=== PATIENT | female | born 1955 | race Caucasian/White ===

== ENCOUNTER 2021-10-16 11:17 | Outpatient (CLI) | payer OTHER, SELFPAY ==
[2021-10-16 11:13] LABS: Albumin* 4.5 g/dL (3.3-5.0); Chloride* 102 mmol/L (96-114)
[2021-10-16 11:14] LABS: Potassium* 4.6 mmol/L (3.6-5.1); Sodium* 138 mmol/L (135-149)
[2021-10-16 11:16] LABS: Alanine Aminotransferase* 26 U/L (4-35); Alkaline Phosphatase* 84 U/L (40-150); Aspartate Amino Transferase* 27 U/L (12-35); Bilirubin Total* 0.7 mg/dL (0.1-1.5); Blood Urea Nitrogen* 17 mg/dL (7-30); Calcium* 9.4 mg/dL (8.4-10.6); Carbon Dioxide* 29 mmol/L (20-32); Cholesterol* 178 mg/dL (90-199); Creatinine* 0.7 mg/dL (0.5-1.5); Estimated Glomerular Filt Rate 97 ml/min; Glucose* 105 mg/dL (60-115); Total Protein* 6.9 g/dL (6.0-8.3); Triglycerides* 105 mg/dL (40-149)
[2021-10-16 11:17] LABS: HDL Cholesterol* 64 mg/dL (>=50); LDL Cholesterol Calculated 93 mg/dL (<100)
[2021-10-21 18:06] LABS: Vitamin B12* 543 pg/mL (243-894)
== END 2021-10-16 11:18 | disposition home or self-care (01) ==
PROVIDERS: PCP Family Medicine; Visit Provider Family Medicine
DX: E78.5 Hyperlipidemia, unspecified (principal)
CPT/HCPCS: 80053; 80061; 82607; 84439; 84443

== ENCOUNTER 2021-11-02 08:21 | Outpatient (CLI) | payer OTHER, SELFPAY ==
[2021-11-02 10:50] LABS: Free T4 Free Thyroxine* 1.28 ng/dL (0.70-1.85)
== END 2021-11-02 08:22 | disposition home or self-care (01) ==
PROVIDERS: PCP Family Medicine; Visit Provider Family Medicine
DX: R79.89 Other specified abnormal findings of blood chemistry (principal)
CPT/HCPCS: 84439; 84443

== ENCOUNTER 2021-12-30 11:11 | Outpatient (CLI) | payer OTHER, SELFPAY ==
--- NOTE | 2021-12-30 11:30 | CRLHL7_ITS ---
For Patients: As a result of the Century Cures Act, medical imaging exams and procedure reports are released immediately into your electronic medical record. You may view this report before your referring provider. If you have questions, please contact your health care provider. BILATERAL SCREENING MAMMOGRAM WITH COMPUTER-AIDED DETECTION AND TOMOSYNTHESIS TECHNIQUE: CC and MLO views were obtained. These mammographic images have been obtained using full-field digital technique. These mammographic images were interpreted with the benefit of computer-aided detection. Breast Tomosynthesis was used in this interpretation. COMPARISON FILM: 10/24/20, 08/13/19, 08/07/18. FINDINGS: The breasts are heterogeneously dense, which may obscure small masses IMPRESSION: There is no radiographic evidence for malignancy. ASSESSMENT: BI-RADS Category 1: Negative RECOMMENDATION: Routine screening mammogram in 1 year. A lay language report of this examination will be provided to the patient. Jonathon Stevens M.D. Diagnostic Radiologist [email or web address] MELLISA/Dictated by: Jonathon Stevens MD @ 12/30/2021 1:12:00 PM (Electronically Signed)
== END 2021-12-30 11:12 | disposition home or self-care (01) ==
LOC: MAMMO 11:12
PROVIDERS: PCP Family Medicine; Visit Provider Family Medicine
DX: Z12.31 Encounter for screening mammogram for malignant neoplasm of breast (principal); R92.2 Inconclusive mammogram
CPT/HCPCS: 77063; 77067

== ENCOUNTER 2022-02-04 13:37 | Emergency (ER) | payer OTHER, SELFPAY ==
[2022-02-04] VITALS (19 sets, daily range): BP systolic 136–169; BP diastolic 77–96; PULSE 89–130; RESP 18–22; TEMP 37; O2SAT 90–99; BMI 30.4
--- NOTE | 2022-02-04 15:51 | CRLHL7_ITS ---
For Patients: As a result of the Century Cures Act, medical imaging exams and procedure reports are released immediately into your electronic medical record. You may view this report before your referring provider. If you have questions, please contact your health care provider. INDICATION: Shortness of breath, current smoker. TECHNIQUE: CT chest without contrast. COMPARISON: None. FINDINGS: Lungs and pleura: Multiple scattered ground-glass/tree-in-bud nodules throughout all lobes of the lung. Denser consolidation seen in the lingula. Biapical scarring with 1.5 centimeter left apical nodule.. No pleural effusions, pleural thickening, or pneumothorax. Heart and vasculature: Heart size is normal. Thoracic aorta and pulmonary artery are normal in caliber. Lymph nodes/mediastinum: Multiple mildly prominent mediastinal lymph nodes, possibly reactive... Chest wall: No masses. Upper abdomen: No significant findings. Bones: Degenerative changes. IMPRESSION: Multifocal pneumonia, including dense lingular nodular consolidation. Recommend short-term follow-up after treatment to evaluate for resolution to exclude underlying mass. Additional biapical scarring with 1.5 centimeter left apical nodule. Recommend correlation with prior imaging if available. If not, also recommend short-term follow-up as malignancy not excluded. Please note that all CT scans at this facility use dose modulation, iterative reconstruction, and/or weight-based dosing when appropriate to reduce radiation dose to as low as reasonably achievable. Dictated by Job Finney MD @ 02/04/2022 5:24:18 PM (Electronically Signed)
--- NOTE | 2022-02-04 15:57 | ED.GENADULT ---
HPI - General Adult General Chief complaint: Shortness of Breath/Dyspnea Stated complaint: Short of breath, arms not working Time Seen by Provider: 02/04/22 14:36 History of Present Illness HPI narrative: This 66-year-old female comes in reporting upper respiratory symptoms for the past couple weeks and now states that she feels some increased weakness in her arms and legs and has tingling in her legs. 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 She states that she was locked in on a respirator for quite a while and did recover but has some residual weakness and decreased sensation since then. This has worsened over the past few days. She was able to ambulate here today but states that it was difficult to do so. Related Data Previous Rx's Medication Instructions Recorded cetirizine 10 mg tablet 10 mg PO .Daily as needed PRN 10/21/21 allergy symptoms #90 tabs gabapentin 300 mg capsule 600 mg PO BID #180 caps 10/21/21 levothyroxine 150 mcg tablet 150 mcg PO DAILY #90 tabs 10/21/21 simvastatin 20 mg tablet 20 mg PO .Bedtime #90 tabs 10/21/21 sumatriptan succinate 50 mg tablet 50 mg PO .As Needed as needed PRN 10/21/21 migraine headache #10 tabs zolpidem 5 mg tablet 5 mg PO .Bedtime as needed PRN 10/21/21 insomnia #30 tabs Allergies Allergy/AdvReac Type Severity Reaction Status Date / Time No Known Allergies Allergy Unknown Unverified 09/25/21 13:43 Review of Systems Status of ROS: Reports: 10 or more systems reviewed and unremarkable except as noted in History and below Narrative: Constitutional: No fevers, no weight gain or loss. Eyes: No discharge. No vision changes. HENT: No congestion, no sore throat, no ear pain. Cardiovascular: No chest pain, no palpitations. Respiratory: She reports some cough and shortness of breath. She is a smoker. Gastrointestinal: No abdominal pain, no vomiting, no diarrhea. Genitourinary: No dysuria, no hematuria. Musculoskeletal: Normal range of motion. Skin: No rashes, no pruritis. Neurological: No dizziness, speech change. She has some residual weakness from Guillain-Santa Rosa syndrome 8 or 9 years ago but now states this weakness has worsened with some tingling. Endo/Heme/Allergies: No bruising or bleeding. No polydipsia. Pysch: no suicidality, no anxiety, no insomnia. All other systems reviewed and are negative. 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) History of migraine headaches Hypothyroidism Left shoulder pain Migraine headache Neuropathy Tobacco abuse disorder Surgical History (Updated 10/21/21 @ 14:07 by Babita Chang MD) History of breast surgery (1988) History of section (1991) History of hernia repair (2012) Family History (Updated 10/21/21 @ 14:08 by Babita Chang MD) Aunt Breast cancer, Onset Age: 55 Mother Celiac disease Brother Celiac disease Diabetes Family/Other Celiac disease Father Diabetes Colon cancer, Onset Age: 50 Maternal Grandfather Prostate cancer Social History (Updated 10/21/21 @ 14:09 by Babita Chang MD) Narrative: , retired teacher, 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 HEENT: Normocephalic, atraumatic. Neck: Normal range of motion. Nontender. Supple. Heart: Regular. No murmurs. Normal rate. Intact distal pulses. Lungs: Clear to auscultation. No chest discomfort. No wheezes, rhonchi, or rales. Abdomen: Normal bowel sounds. Nontender. No rebound tenderness. Genitalia: Deferred. Back: No midline tenderness. Normal range of motion. Extremities: Normal range of motion. No injury. Skin: Intact. No rash. Warm. No erythema or pallor. Neurologic: Alert and oriented. Fight Manager strength is equal but rather weak bilaterally. She is able to raise her arms up above her head and raise her legs up off of the bed. Pronator drift is negative. [id number] is normal. No facial asymmetry. Patellar reflexes are normal bilaterally. Achilles reflexes also are normal. Psychiatric: No suicidality. No anxiety or depression. No insomnia. Nursing notes and vitals signs are reviewed. Const: Vital Signs, click to edit/add: Vital Signs - 24 hr 02/04/22 14:01 02/04/22 18:39 02/04/22 19:06 Temperature 98.6 F Pulse Rate [Right Pulse Oximeter] 130 H 89 103 H Respiratory Rate 18 18 20 Blood Pressure [Ri ght Upper Arm] 161/78 H 136/77 169/96 H Pulse Oximetry 93 99 94 Oxygen Delivery Me thod Room Air Room Air Room Air Course Vital Signs Vital signs: Initial Vital Signs Temperature 98.6 F 02/04/22 14:01 Temperature Source Temporal Artery Scan 02/04/22 14:01 Pulse Rate 130 H 02/04/22 14:01 Respiratory Rate 18 02/04/22 14:01 Blood Pressure 161/78 H 02/04/22 14:01 Blood Pressure Mean 105 02/04/22 14:01 Blood Pressure Position Sitting 02/04/22 14:01 Pulse Oximetry 93 02/04/22 14:01 Oxygen Delivery Method 02/04/22 14:01 Vital Signs Temperature 98.6 F 02/04/22 14:01 Pulse Rate 130 H 02/04/22 14:01 Respiratory Rate 18 02/04/22 14:01 Blood Pressure 161/78 H 02/04/22 14:01 Pulse Oximetry 93 02/04/22 14:01 Oxygen Delivery Method 02/04/22 14:01 Temperature 98.6 F 02/04/22 14:01 Pulse Rate 103 H 02/04/22 19:06 Respiratory Rate 20 02/04/22 19:06 Blood Pressure 169/96 H 02/04/22 19:06 Pulse Oximetry 94 02/04/22 19:06 Oxygen Delivery Method 02/04/22 19:06 Medical Decision Making MDM Narrative Medical decision making narrative: This patient comes in reporting generalized weakness that is occurred over the past couple days. She has had respiratory symptoms for the past couple weeks and reports a cough. She is a smoker. She has a remote history of Guillain-Santa Rosa syndrome with some residual affects but states that her weakness has worsened recently and wonders if she is having a recurrence of this condition. CT scan of the chest is acquired which does show sign of pneumonia. The patient received IV doses of Rocephin and Zithromax. Her neurologic exam is normal with no pronator drift, normal [id number], she is speaking normally and able to get up and ambulate. Her four horse hitch driver strength is equal but is significantly weak and. The patient states that she does not feel safe to return home under these circumstances. Her patellar reflexes are intact bilaterally. I did speak with the neurologist nuclear weapons specialist at [facility] regarding the possibility of recurrence of an acute inflammatory demyelinating polyneuropathy. The neurologist stated that her current symptoms are not requiring that kind of workup but if worsening symptoms happen she may need a lumbar puncture. I had lengthy discussion with the patient and her son regarding the lack of hospitalization here or elsewhere to attend to her needs. I did speak with the hospitalist on-call here also in this regard. In the and it seems best to all involve to board the patient here in the ER until a bed opens up somewhere where there is neurology resources. Hopefully her symptoms will improve but if worsening then she would definitely need such resources. Lab Data Labs: Lab Results 02/04/22 02/04/22 02/04/22 Range/Units 16:05 16:05 16:05 WBC 14.43 H (4.50-11.00) K/uL RBC 4.28 (4.00-5.20) m/uL Hgb 12.8 (12.0-16.0) gm/dL Hct 39.3 (33.0-51.0) % MCV 92 (80-100) fL MCH 30 (26-34) pg MCHC 33 (32-36) gm/dL RDW Coeff of Jenelle 12.3 (11.5-15.5) % Plt Count 475 H (140-440) K/uL Neut % (Auto) 80.6 H (42.0-72.0) % Lymph % (Auto) 11.9 L (20-44) % Motley % (Auto) 5.7 (0.0-11.0) % Eos % (Auto) 1.2 (0.0-7.0) % Baso % (Auto) 0.3 (0.0-3.0) % Neut # (Auto) 11.60 H (1.7-7.0) K/uL Lymph # (Auto) 1.70 (0.90-2.90) K/uL Motley # (Auto) 0.80 (0.00-0.90) K/UL Eos # (Auto) 0.20 (0.00-0.50) K/uL Baso # (Auto) 0.00 (0.00-0.30) K/uL ESR 63 H (2-20) mm/hr Sodium 141 (135-149) mmol/L Potassium 4.2 (3.6-5.1) mmol/L Chloride 105 (96-114) mmol/L Carbon Dioxide 31 (20-32) mmol/L BUN 10 (7-30) mg/dL Creatinine 0.6 (0.5-1.5) mg/dL Estimated Creat Clear 57.33 Estimated GFR 100 ml/min Glucose 106 (60-115) mg/dL Calcium 9.6 (8.4-10.6) mg/dL C-Reactive Protein 4.4 H (0.5-1.0) mg/dL NT-Pro-B Natriuret Pep 55 pg/mL Urine Color (Yellow) Urine Appearance (Clear) Urine pH (5.0-8.5) Ur Specific Webster (1.000-1.030) Urine Protein (Negative) Urine Glucose (UA) (Negative) Urine Ketones (Negative) Urine Blood (Negative) Urine Nitrite (Negative) Urine Bilirubin (Negative) Urine Urobilinogen (0.2-1.0) Ur Leukocyte Esterase (Negative) Urine RBC (0-2) Urine WBC (0-5) Ur Squamous Epith Cells (None-Few) Urine Bacteria (None) SARS-CoV-2 (PCR) (Negative) Influenza Type A (PCR) (Negative) Influenza Type B (PCR) (Negative) RSV (PCR) (Negative) 02/04/22 02/04/22 02/04/22 Range/Units 16:05 16:20 17:40 WBC (4.50-11.00) K/uL RBC (4.00-5.20) m/uL Hgb (12.0-16.0) gm/dL Hct (33.0-51.0) % MCV (80-100) fL MCH (26-34) pg MCHC (32-36) gm/dL RDW Coeff of Jenelle (11.5-15.5) % Plt Count (140-440) K/uL Neut % (Auto) (42.0-72.0) % Lymph % (Auto) (20-44) % Motley % (Auto) (0.0-11.0) % Eos % (Auto) (0.0-7.0) % Baso % (Auto) (0.0-3.0) % Neut # (Auto) (1.7-7.0) K/uL Lymph # (Auto) (0.90-2.90) K/uL Motley # (Auto) (0.00-0.90) K/UL Eos # (Auto) (0.00-0.50) K/uL Baso # (Auto) (0.00-0.30) K/uL ESR (2-20) mm/hr Sodium (135-149) mmol/L Potassium (3.6-5.1) mmol/L Chloride (96-114) mmol/L Carbon Dioxide (20-32) mmol/L BUN (7-30) mg/dL Creatinine (0.5-1.5) mg/dL Estimated Creat Clear Estimated GFR ml/min Glucose (60-115) mg/dL Calcium (8.4-10.6) mg/dL C-Reactive Protein (0.5-1.0) mg/dL NT-Pro-B Natriuret Pep Cancelled pg/mL Urine Color Yellow (Yellow) Urine Appearance Clear (Clear) Urine pH 7.0 (5.0-8.5) Ur Specific Webster 1.025 (1.000-1.030) Urine Protein Negative (Negative) Urine Glucose (UA) Negative (Negative) Urine Ketones Negative (Negative) Urine Blood Negative (Negative) Urine Nitrite Negative (Negative) Urine Bilirubin Negative (Negative) Urine Urobilinogen 0.2 (0.2-1.0) Ur Leukocyte Esterase Negative (Negative) Urine RBC 0-2 (0-2) Urine WBC 0-2 (0-5) Ur Squamous Epith Cells Few (None-Few) Urine Bacteria None (None) SARS-CoV-2 (PCR) Negative SARS-CoV-2 (Negative) Influenza Type A (PCR) Negative PCR FLU A (Negative) Influenza Type B (PCR) Negative PCR FLU B (Negative) RSV (PCR) Negative PCR RSV (Negative) Imaging Data CT scan - chest: Attestation: I have reviewed the pertinent imaging results. Radiologist's impression: FINDINGS: Lungs and pleura: Multiple scattered ground-glass/tree-in-bud nodules throughout all lobes of the lung. Denser consolidation seen in the lingula. Biapical scarring with 1.5 centimeter left apical nodule.. No pleural effusions, pleural thickening, or pneumothorax. Heart and vasculature: Heart size is normal. Thoracic aorta and pulmonary artery are normal in caliber. Lymph nodes/mediastinum: Multiple mildly prominent mediastinal lymph nodes, possibly reactive... Chest wall: No masses. Upper abdomen: No significant findings. Bones: Degenerative changes. IMPRESSION: Multifocal pneumonia, including dense lingular nodular consolidation. Recommend short-term follow-up after treatment to evaluate for resolution to exclude underlying mass. Additional biapical scarring with 1.5 centimeter left apical nodule. Recommend correlation with prior imaging if available. If not, also recommend short-term follow-up as malignancy not excluded. Discharge Plan Discharge Clinical Impression: Community acquired pneumonia, Weakness Prescriptions: No Action cetirizine 10 mg tablet 10 mg PO .Daily as needed PRN (Reason: allergy symptoms) Qty: 90 3RF gabapentin 300 mg capsule 600 mg PO BID Qty: 180 4RF levothyroxine 150 mcg tablet 150 mcg PO DAILY Qty: 90 4RF simvastatin 20 mg tablet 20 mg PO .Bedtime Qty: 90 4RF sumatriptan succinate 50 mg tablet 50 mg PO .As Needed as needed PRN (Reason: migraine headache) Qty: 10 5RF Rx Instructions: ONE TAB AT ONSET OF HEADACHE, MAY REPEAT once in 2 h zolpidem 5 mg tablet 5 mg PO .Bedtime as needed PRN (Reason: insomnia) Qty: 30 0RF Rx Instructions: use only very sparingly Follow Up/Referrals: Babita Chang MD [Primary Care Provider] -
[2022-02-04 16:22] LABS: Basophils Percent Auto 0.3 % (0.0-3.0); Eosinophils Percent Auto 1.2 % (0.0-7.0); Hematocrit 39.3 % (33.0-51.0); Hemoglobin* 12.8 gm/dL (12.0-16.0); Immature Granulocytes Pct Auto 0.3 %; Lymphocytes Percent Auto 11.9 % (20-44); Mean Corpuscular HGB Conc 33 gm/dL (32-36); Mean Corpuscular Hemoglobin 30 pg (26-34); Mean Corpuscular Volume 92 fL (80-100); Monocytes Percent Auto 5.7 % (0.0-11.0); Neutrophils Percent Auto 80.6 % (42.0-72.0); Platelet Count* 475 K/uL (140-440); RDW Coefficient of Variation % 12.3 % (11.5-15.5); Red Blood Count 4.28 m/uL (4.00-5.20); White Blood Count* 14.43 K/uL (4.50-11.00)
[2022-02-04 16:30] LABS: Chloride* 105 mmol/L (96-114); Potassium* 4.2 mmol/L (3.6-5.1); Sodium* 141 mmol/L (135-149)
[2022-02-04 16:33] LABS: Creatinine* 0.6 mg/dL (0.5-1.5); Est. Creatinine Clearance* 57.33; Estimated Glomerular Filt Rate 100 ml/min
[2022-02-04 16:34] LABS: Blood Urea Nitrogen* 10 mg/dL (7-30); Calcium* 9.6 mg/dL (8.4-10.6); Carbon Dioxide* 31 mmol/L (20-32); Glucose* 106 mg/dL (60-115)
[2022-02-04 16:36] LABS: C Reactive Protein* 4.4 mg/dL (0.5-1.0)
[2022-02-04 16:45] LABS: Slide Review Reflex No
[2022-02-04 16:58] LABS: NT Pro B Type NatriureticPept* 55 pg/mL
[2022-02-04 17:12] LABS: PCR FLU A Negative PCR FLU A (Negative); PCR FLU B Negative PCR FLU B (Negative); PCR RSV Negative PCR RSV (Negative)
[2022-02-04 17:47] LABS: Erythrocyte SedimentationRate* 63 mm/hr (2-20)
[2022-02-04 17:48] LABS: Appearance Urine Clear (Clear); Bilirubin Urine Negative (Negative); Blood Urine Negative (Negative); Color Urine Yellow (Yellow); Glucose Urine Negative (Negative); Ketones Urine Negative (Negative); Leukocyte Esterase Urine Negative (Negative); Nitrite Urine Negative (Negative); Protein Urine Negative (Negative); Specific Gravity Urine 1.025 (1.000-1.030); Urobilinogen Urine 0.2 (0.2-1.0)
[2022-02-04 17:58] LABS: SARS PCR* Negative SARS-CoV-2 (Negative)
[2022-02-04 18:05] LABS: RBC Urine 0-2 (0-2); Squamous Epithelial Cell Urine Few (None-Few); WBC Urine 0-2 (0-5)
[2022-02-04] MEDS: cefTRIAXone 1 GM in 0.9 % SODIUM CHLORIDE Mini-bag 100 ML IVPB (19:36)
[2022-02-04] MEDS: AZITHROMYCIN 100 MG/ML inj 500 MG IVPB (20:08)
--- NOTE | 2022-02-04 22:16 | ED.NURSE ---
Pt and pt's son state they would like to speak with Dr. Buchanan about leaving. Pt and pt's son told that they would be leaving against medical advice, as pt is having bilateral hand/arm weakness, is struggling to walk, and unable to toilet herself. Dr. Terry, taking over for Dr. Buchanan repeats these concerns that pt needs to stay here and be hospitalized. Pt and pt's son verbalize understanding of this but again express that they would like to leave and understand that pt would be leaving against medical advice. Form brought to pt and signed.
== END 2022-02-04 22:45 | disposition home or self-care (01) ==
LOC: ED 14:46
PROVIDERS: Emergency Provider Emergency Medicine Emergency Medical Services; PCP Family Medicine
DX: J18.9 Pneumonia, unspecified organism (principal)
CPT/HCPCS: 36415; 71250; 80048; 81001; 83880; 85025; 85651; 86140; 87502; 87634; 87635; 96365; 96366; 99285; J0456; J0696

== ENCOUNTER 2022-04-20 09:18 | Outpatient (CLI) | payer MEDICARE, BC, SELFPAY | END 2022-04-20 09:19 | disposition home or self-care (01) | PROVIDERS: PCP Family Medicine; Referring Provider Family Medicine; Visit Provider Family Medicine | DX: Z00.00 Encounter for general adult medical examination without abnormal findings (principal); G61.0 Guillain-Barre syndrome; R53.83 Other fatigue; E78.5 Hyperlipidemia, unspecified; E03.9 Hypothyroidism, unspecified | CPT/HCPCS: 80053; 80061; 84443 ==

== ENCOUNTER 2022-05-24 13:00 | Outpatient (RCR) | payer MEDICARE, SELFPAY ==
--- NOTE | 2022-04-02 17:14 | OT.OPGNE ---
OT Outpatient General/Neuro Eval OT Outpatient General/Neuro Eval Start: 03/26/22 15:55 Freq: Status: Active Protocol: Document 03/26/22 15:55 SMW (Rec: 03/26/22 15:57 SMW [id number]) E-signed By Anjelica Chino OT OT Outpatient Evaluation Details Type Type Eval Complexity Low Insurance Information Insurance Information Insurance Information Medicare B Outpatient History/Precautions Medical/Functional History Medical History Reviewed Yes Prior Level of Function/Mobility Previously I all ADLS, IADLS and mobility. 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 Patient Subjective Subjective Patient Subjective This is my 2nd time having this disease. Objective Measures Shoulder Shoulder ROM AROM R WNL AROM L BNL ~ 90 degrees. Shoulder Strength R 4+/5 L 3+/5 Elbow Elbow ROM WNL bilaterally Elbow Strength R 5/5 L 3+/5 Wrist Wrist ROM WNL bilaterally Wrist Strength R 5/5 L 3+/5 Hand Hand Right reimbursement representative strength 22.33 lbs, decker pinch 9.5 lbs, pincer 9 lbs Left reimbursement representative strength 18.66 lbs, decker pinch 5.83 lbs, pincer 5. 83 lbs card flip right 45.80 seconds card flip left 1.03.31 minutes Balance Assessment Comments Balance Comments to be assessed at future session. Home Maintenance Assessment ADL Oral Care Ability Independent Bathing Ability Standby Assistance Eating (Feeding) Ability Independent Upper Body Dressing Ability Independent Lower Body Dressing Ability Independent Grooming Ability Independent Toileting Ability Independent Ambulation Ability Independent Home Management Meal Preparation Ability Minimum Assistance Cleaning Ability Moderate Assistance Shopping Ability Moderate Assistance Assistance Assistance Currently Received patient is assisted by friends and family members. Coordination Assessment Test Side Right Finger to Nose Test Normal Performance Finger to Therapist's Finger Test Normal Performance Finger to Finger Test Normal Performance Alternate Nose to Finger Test Normal Performance Finger Opposition Test Normal Performance 9-Hole Test 21.51 Left Finger to Nose Test Normal Performance Finger to Therapist's Finger Test Normal Performance Finger to Finger Test Normal Performance Alternate Nose to Finger Test Normal Performance Finger Opposition Test Normal Performance 9-Hole Test 25.46 Assessment Assessment Assessment The patient is a pleasant 67 year old female referred to outpatient OT with a diagnosis of Guillian Ebro syndrome. Patient reports symptoms started on 02/04/22 and she went to the ED of [facility], left AMA and drove with her son to [facility] and was admitted on 02/05/22. She underwent 5 rounds of IVIG. She quickly deteriorated and was intubated. She remained at [facility] until her admit to [facility] rehab on 02/26/22. She discharged to home on 03/19/22. The patient lives in a 3rd floor apartment with an elevator. She was previously I in all ADLS, IADLs and mobility. 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 Today, the patient presents to OT walking with a cane. She reports moderate numbness and tingling in both her upper and lower extremities. She was recently placed on Lyrica. She reports wearing bilateral wrist braces at night which helps with the tingling in her hands post sleep. Her DME at home includes; tub/shower bench, toilet safety frame and cane. She feels her upper extremities are weaker with left weaker than right. UE assessments support this. The patient reports I in basic ADLS and she is assisted with IADLS. She is using a cane when outside of her apartment. She has not returned to driving, however is anxious to do so when she and therapist feel she is ready. The patient will benefit from skilled outpatient OT 1-2x per week for 8- 10 weeks to address decreased bilateral upper extremity strength including reimbursement representative and pinch, decreased activity tolerance, assess feasibility to return to driving, decreased IADLS. Occupational Therapy Treatment Plan - OP Potential Rehabilitation Potential Excellent Set Goals Goals Set with Patient Yes Goals Goals Within 10 weeks, the patient will.. 1. improve right reimbursement representative strength to 40 pounds, left to 30 pounds. 2. improve right decker pinch to 12, left to 10. 3. improve right 9 hole to 18 seconds, left to 21 seconds 4. improve left upper shoulder and elbow strength to 4+/5. 5. be able to complete 30 minute task without rest break . 6. complete physical driving assessments in order to return to driving. 7. report increased independence in IADLS. Progress set Treatment Plan Treatment Plan Evaluation,Therapeutic Exercise,Therapeutic Activities,Self-Care/Home Management,Education Expected Frequency 1-2x Week Expected Duration 8-10 Weeks Certification Certification I Certify That: Therapy Services Provided, Therapy Plan Established, Therapy Plan Reviewed Recertification Information Recertification Information Initial Certification Date 03/26/22 Recertification Start Date 03/26/22 Provider Signature Shows Agreement With POC & Medical Necessity Physician Comment/Change Comment or Changes Physician NPI Number #
== END 2022-06-07 10:28 | disposition home or self-care (01) ==
PROVIDERS: PCP Family Medicine; Visit Provider Physical Medicine & Rehabilitation
DX: G61.0 Guillain-Barre syndrome (principal); Z51.89 Encounter for other specified aftercare
CPT/HCPCS: 97110; 97112; 97162; 97164; 97165; 97530; X5282

== ENCOUNTER 2022-05-26 15:08 | Outpatient (CLI) | payer MEDICARE, BC, SELFPAY ==
--- NOTE | 2022-05-26 15:30 | CRLHL7_ITS ---
For Patients: As a result of the Century Cures Act, medical imaging exams and procedure reports are released immediately into your electronic medical record. You may view this report before your referring provider. If you have questions, please contact your health care provider. DXA BONE MINERAL DENSITY STUDY, 05/26/2022 Reason for exam: Asymptomatic age-related postmenopausal state. Current height (inches): 67.5 Weight (lbs.): 190 Menopause age: 57 Ethnicity: White 1. Have you had a previous hip or vertebral fracture? No. 2. Have you had any fractures during your adult life which did not result from significant trauma (e.g., auto accident)? No. 3. Did either of your parents have a hip fracture? No. 4. Do you smoke? Yes. 5. Have you ever taken Glucocorticoids? No. 6. Do you have rheumatoid arthritis? No. 7. Do you have secondary osteoporosis? No. 8. Do you drink 3 or more alcoholic drinks per day? No. 9. Are you being treated for osteoporosis? No. 10. Have you ever taken any of the following medications: Actonel, Evista, Fosamax, Miacalcin, Reclast, Boniva, Forteo, HRT (i.e., estrogen/hormone therapy), Protelos, Prolia, Vitamin D, Calcium, other ??? please specify. ANSWER: Yes; vitamin D, calcium. 11. Do you have any of the following medical conditions: Anorexia or bulimia, asthma or emphysema, end stage renal disease, hyperparathyroidism, any seizure disorders, cancer, inflammatory bowel diseases, hysterectomy, other ??? please specify. ANSWER: No. 12. What was your maximum height (inches)? 69. 13. Do you perform weightbearing exercise regularly? No. 14. Do you regularly consume dairy products? No. 15. Do you drink caffeinated beverages? Yes. 16. At what age did your period start? 15. 17. Are you premenopausal? No. 18. How many full-term pregnancies have you had? 2. 19. Have you ever missed your period for more than 6 months in a row (not including or menopause)? No. TECHNIQUE: Bone mineral density study was performed using the Dick or Bro. FINDINGS: The results of the study expressed as bone mineral density (BMD) are as follows: Lumbar Spine L1 to L4: BMD: 0.959 g/cm2. T-score: -0.8. Z-score: 1.0. Neck Left: BMD: 0.831 g/cm2. T-score: -0.2. Z-score: 1.3. Right: BMD: 0.864 g/cm2. T-score: 0.1. Z-score: 1.7. Total Left: BMD: 0.877 g/cm2. T-score: -0.5. Z-score: 0.7. Right: BMD: 0.916 g/cm2. T-score: -0.2. Z-score: 1.0. IMPRESSION: Normal bone density. JONATHON PETER M.D. Diagnostic Radiologist [email or web address] Transcribed: 11:[address]/Dictated by: Jonathon Peter MD @ 05/27/2022 9:11:00 AM (Electronically Signed)
--- NOTE | 2022-05-26 16:00 | CRLHL7_ITS ---
For Patients: As a result of the Century Cures Act, medical imaging exams and procedure reports are released immediately into your electronic medical record. You may view this report before your referring provider. If you have questions, please contact your health care provider. Indication: Follow-up lung nodule high-risk patient Technique: Post contrast CT chest. 75 cc Isovue 370 intravenous contrast. Please note that all CT scans at this facility use dose modulation, iterative reconstruction, and/or weight-based dosing when appropriate to reduce radiation dose to as low as reasonably achievable. Comparison: 02/04/2022 Findings: Interval clearing of bilateral infiltrates including a masslike density within both lung apices. Scarring is present at the right lung apex extending to the pleura. Paraseptal emphysematous changes noted. Stable curvilinear nodular density within the medial left upper lobe measuring 7 millimeters, 08/21. No adenopathy. Sub centimeters cysts in the liver. Adrenal glands normal. Tortuosity of the aorta. Similar appearance of the breast tissue. No fracture. Impression: Resolution of previously noted inflammatory process. 7 millimeter curvilinear nodule medial aspect left upper lobe at the left lung apex is unchanged. Follow-up low-dose chest CT in 1 year recommended. Paraseptal emphysema. No adenopathy. Please note that all CT scans at this facility use dose modulation, iterative reconstruction, and/or weight-based dosing when appropriate to reduce radiation dose to as low as reasonably achievable. Dictated by Jonathon Stevens MD @ 05/27/2022 12:42:28 PM (Electronically Signed)
[2022-05-26 16:27] LABS: Creatinine* 0.6 mg/dL (0.5-1.5); Estimated Glomerular Filt Rate 100 ml/min
== END 2022-05-26 15:09 | disposition home or self-care (01) ==
LOC: RAD 15:09
PROVIDERS: PCP Family Medicine; Visit Provider Family Medicine
DX: Z78.0 Asymptomatic menopausal state (principal); R91.1 Solitary pulmonary nodule
CPT/HCPCS: 36415; 71260; 77080; 82565; Q9967

== ENCOUNTER 2022-08-03 13:42 | Outpatient (CLI) | payer MEDICARE, BC, SELFPAY | END 2022-08-03 13:43 | disposition home or self-care (01) | PROVIDERS: PCP Family Medicine; Visit Provider Family Medicine | DX: R19.7 Diarrhea, unspecified (principal) | CPT/HCPCS: 83516 ==

== ENCOUNTER 2022-08-24 14:08 | Outpatient (CLI) | payer MEDICARE, BC, SELFPAY | END 2022-08-24 14:09 | disposition home or self-care (01) | PROVIDERS: PCP Family Medicine; Visit Provider Family Medicine | DX: R19.7 Diarrhea, unspecified (principal); R53.83 Other fatigue | CPT/HCPCS: 80053; 84443 ==

== ENCOUNTER 2022-08-25 08:45 | Outpatient (CLI) | payer MEDICARE, BC, SELFPAY | END 2022-08-25 08:46 | disposition home or self-care (01) | LOC: NFLDREF 08-26 05:50 | PROVIDERS: PCP Family Medicine; Referring Provider Family Medicine; Visit Provider Family Medicine | DX: R19.7 Diarrhea, unspecified (principal) | CPT/HCPCS: 87045; 87046; 87077; 87177; 87209; 87427; 87493; 87505 ==

== ENCOUNTER 2022-09-30 11:32 | Outpatient (CLI) | payer MEDICARE, BC, SELFPAY ==
--- NOTE | 2022-09-30 07:03 | W.ANESCHARGE ---
Anesthesia Charges Start Date/Time Anesthesia Start Date: 09/30/22 Anesthesia Start Time: 12:20 Stop Date/Time Anesthesia Stop Date: 09/30/22 Anesthesia Stop Time: 12:58
--- NOTE | 2022-09-30 13:27 | W.ANESCHARGE ---
Anesthesia Charges Start Date/Time Anesthesia Start Date: 09/30/22 Anesthesia Start Time: 12:20 Stop Date/Time Anesthesia Stop Date: 09/30/22 Anesthesia Stop Time: 12:58
== END 2022-09-30 11:33 | disposition home or self-care (01) ==
LOC: OP CLINIC 11:34
PROVIDERS: PCP Family Medicine; Visit Provider Surgery
DX: Z86.010 Personal history of colon polyps (principal)
CPT/HCPCS: 00811; 45380; 88305; J2704

== ENCOUNTER 2022-12-15 07:27 | Day surgery (SDC) | payer MEDICARE, BC, SELFPAY ==
--- OUTSIDE RECORDS SUMMARY | 2022-12-15 07:30 | XMS_ITS | Continuity of Care Document ---
Author Name Unknown Organization [facility] Address [address] [address] [place] [address] Phone Care Team Providers Care Engineering Technology Instructor Name Role Phone Priscilla Galeas MD Unavailable Unavailable Allergies, Adverse Reactions, Alerts Substance Reaction Status Criticality No Known Allergies Active No Inform ation Medications Medication Instructions Dosage Effective Dates (start - stop) Status Comments Chantix 1 mg tablet take 1 tablet by oral route 2 times every day with glass of water after meals 1 MG - Active TYLENOL (unknown strength) take 1 tablet by oral route every 6 hours as needed Not Available - Active pregabalin 100 mg capsule take 1 capsule by oral route 3 times every day 100 MG - Active duloxetine 30 mg capsule,delayed release take 1 Capsule by oral route 2 times every day 30 MG - Active levothyroxine 150 mcg capsule take 1 Capsule by oral route once 1 Capsule - Active melatonin 5 mg tablet take 1 Tablet by Oral route once 1 Tablet - Active PROBIOTIC (unknown strength) take 1 tablet by oral route every day Not Available - Active Unisom (doxylamine) 25 mg tablet take 1 tablet by oral route every bedtime 1 tablet - Active simvastatin 20 mg tablet take 1 tablet by oral route every day in the evening 20 MG - Active multivitamin tablet take 1 tablet by oral route every day with food - Active Vitamin B-12 500 mcg tablet take 1 gummy by Oral route every day 1 gummy - Active Vitamin D3 25 mcg (1,000 unit) chewable tablet take 1 gummy by Oral route every day 1 gummy - Active Vitamin C 250 mg chewable tablet take 1 gummy by oral route every day 1 gummy - Active Procedures Procedure Date Established Level 3 New Level 4 Advance Directives Directive Yes / No Effective Date File Name No Information Encounters Encounter Description Practice Location Reason(s) For Visit Diagnoses Date Provider Providers Copied on Encounter Established Level 3 [facility], [address] [address], [place], [place], [id number], [place] tel:[phone] [facility] GI Symptoms or Concerns (chief complaint) Collagenous colitis Adal Wells. [address] [facility], [address], [id number], [place]. tel:[phone] Referring Provider: Referral Self. [facility], [address] [address], [place], [place], [address], [place] tel:[phone] [facility] No Information Jose Krishnamurthy. [address] [facility], [facility] [address], [place], [place], [id number], [place]. tel:[phone] New Level 4 [facility], [address] [address], [place], [place], [id number], [place] tel:[phone] [facility] GI Symptoms or Concerns (chief complaint) Diarrhea, unspecified typeHistory of Guillain-Juarez e syndrome Adal Wells. [address] [facility], [facility] [address], [place], [place], [id number], [place]. tel:[phone] Referring Provider: Babita Chang MD, [address] [place], [address]. tel:[phone] [facility], [address] [address], [place], [place], [address], [place] tel:[phone] [facility] No Information Jose Krishnamurthy. [address] [facility], [address], [place], [place], [address], [place]. tel:[phone] Family History Family Member Type Diagnosis Age At Onset Mother Problem (finding) Celiac disease Brother Problem (finding) Colon polyps Son Problem (finding) Celiac disease Father Problem (finding) Colon polyps Sister Problem (finding) Celiac disease Mother Problem (finding) Asthma Brother Problem (finding) Celiac disease Sister Problem (finding) Asthma Immunizations Vaccine Date Status Comments SARS-COV-2 (COVID-19) vaccin e, mRNA, spike protein, LNP, preservative free, tai-sucrose, 30 mcg/0.3 mL dose administered Note: [facility] bi-direct ional interface ; Source: Other Registry Respiratory syncytial virus (RSV), vaccine, bivalent, protein subunit RSV prefusion F, diluent reconstituted, 0.5 mL, preservative free administered Note: [facility] bi-direct ional interface ; Source: Other Registry SARS-COV-2 (COVID-19) vaccin e, mRNA, spike protein, LNP, bivalent, preservative free, 50 mcg/0.5 mL or 25 mcg/0.25 mL dose administered Note: [facility] bi-direct ional interface ; Source: Other Registry SARS-COV-2 (COVID-19) vaccin e, mRNA, spike protein, LNP, bivalent booster, preservative free, 50 mcg/0.5 mL or 25 mcg/0.25 mL dose administered Note: [facility] bi-direct ional interface ; Source: Other Registry tetanus toxoid, reduced diphtheria toxoid, and acellular pertussis vaccine, adsorbed administered Note: [facility] b i-directional interface ; Source: Other Registry Pneumovax 23 administered Note: [facility] bi-d irectional interface ; Source: Other Registry SARS-COV-2 (COVID-19) vaccin e, mRNA, spike protein, LNP, preservative free, 100 mcg/0.5mL dose or 50 mcg/0.25mL dose administered Note: [facility] bi -directional interface ; Source: Other Registry SARS-COV-2 (COVID-19) vaccin e, mRNA, spike protein, LNP, preservative free, 30 mcg/0.3mL dose administered Note: [facility] bi-direct ional interface ; Source: Other Registry SARS-COV-2 (COVID-19) vaccin e, mRNA, spike protein, LNP, preservative free, 30 mcg/0.3mL dose administered Note: [facility] bi-direct ional interface ; Source: Other Registry tetanus toxoid, reduced diphtheria toxoid, and acellular pertussis vaccine, adsorbed administered Note: [facility] b i-directional interface ; Source: Other Registry Payers Payer name Insurance type Covered constitution party ID Authoriza tion(s) Blue [employer] [place] [employer] [place] Blue BL [id number] Social History Type Description Quantity Date Captured Comments Alcohol Use Details Unknown Caffeine Use Details Unknown Tobacco Use Status No Information Smoking Status undefined Sex Female Vital Signs Date / Time: Height Weight BMI Pulse Rate Blood Pressure Temperature Respiratory Rate Body Surface Area Head Circumference Head Circ. Percentile Wt./Federico. Percentile BMI percentile Pulse Ox Inhaled Ox 1:52 PM 67.00 in 90.718 kg (200.00 lbs) 31.3 2 kg/m eter (2) Chief Complaint And Reason For Visit From encounter dated '12/08/2022 13:52'. GI Symptoms or Concerns (chief complaint) Reason For Referral Reason For Referral No Information Plan Of Treatment Date Type Action Status Referral Ordered: Colonoscopy Appointment date/timeframe: 09/20/2022 ordered History Of Present Illness Encounter Date Complaint History Of Prese nt Illness GI Symptoms or Concerns GI Symptoms or Concerns This is a 67-year-old female who presents to GI virtual Clinic for evaluation of nearly 2 months of diarrhea in consultation at the request of Dr. Chang.Patient's history is notable for family history of colon cancer for which she is on every 5 year colonoscopy with most recent 3 years ago. Also strong family history of celiac disease. 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 Patient relates for the better part of the past 2 months she is been dealing with chronic watery diarrhea. She has on average 3-5 loose watery stools per day though rarely at night. No melena or hematochezia. No nausea or vomiting. No unintentional weight loss. No fevers or chills. She did have recent antibiotic exposure prior to development of this diarrhea. She is tried dietary adjustment as well as fiber supplementation without help as she continues to have loose watery stool. She brought these issues up with her primary care provider who sent a celiac panel given patient's family history which was normal as well as stool culture, C diff and ova and parasite which were all normal. CBC and CMP were unremarkable. Functional Status Date Functional Assessmen t No Information Instructions Date Instruction Additional Infor lesli Thank you for mike cotter with your healthcare. Our plan based on our discussion today is as follows:-Continue to take Imodium as needed to help manage your bowel movement frequency.-If you start to need Imodium frequently, or multiple times per day, we can add a medication called Cholestyramine.-Follow up in GI clinic as needed. Related to Collagenous colitis Thank you for mike cotter with your healthcare. Our plan based on our discussion today is as follows:-For your diarrhea, we will schedule a colonoscopy and take biopsies to rule out microscopic colitis.-Start taking Imodium as needed to help slow down your bowel movements.-Return to GI clinic in 3 months or sooner as needed. Related to Diarrhea, unspecified type Assessments Type Assessment Date assessment Collagenous colitis impression This is a 67-year-ol d patient who presents to GI virtual clinic for followup of chronic diarrhea. The patient is known to my clinic and I last saw her in August of this year. She has a history of Guillain-Colora syndrome in 2012 with recent recurrence and at her last visit, we discussed subacute diarrhea with 3-5 loose bowel movements per day. Patient has a significant family history of autoimmune disease and we had a higher index of suspicion for microscopic colitis and recommended colonoscopy which patient did complete locally in [place] with an outside provider. I do not have the records for my review, but patient was able to read the pathology report which demonstrated collagenous colitis on colonic biopsies. She was not recommended treatment at that time and was recommended to follow up with myself.The patient relates that she has been taking Imodium intermittently and her bowel movement frequency is actually improved since our last visit. She is having on average 1-2 decently formed stools per day without melena or hematochezia. She is comfortable with her current bowel regimen, though is interested in hearing more about her new diagnosis. In summary, this is a 67-year-old female with a history of Guillain-Colora syndrome with recent recurrence, who presents to GI clinic for followup of newly diagnosed collagenous colitis.The patient's symptoms are currently under good control with intermittent as-needed Imodium alone. We did discuss other treatment options including cholestyramine and budesonide, though do not believe either are necessary at this time given mild symptoms. Patient will call my office if symptoms progress or she ends up requiring multiple doses of Imodium per day at which point, we can consider cholestyramine first followed by budesonide as needed.The above plan was discussed with the patient, who is in agreement with plan. All questions were answered. Patient can return to GI clinic in 1 year, sooner as needed. Patient Care Teams Name Effective Dates (start - stop) Status Members No Information
[2022-12-15] MEDS: TETRACAINE 0.5% OPHTH 1 DROP EYE-RIGHT ×2 (07:40→07:45)
[2022-12-15] MEDS: KETOROLAC OPHTH 0.5% 1 DROP EYE-RIGHT ×2 (07:40→07:45)
[2022-12-15 07:52] VITALS: BMI 31.4
[2022-12-15 07:56] VITALS: BP 127/82; PULSE 94; RESP 18; TEMP 36.9; O2SAT 92
[2022-12-15] MEDS: SODIUM CHLORIDE 0.9 % (FLUSH) 10 ML SYRINGE IVF (08:05)
--- NOTE | 2022-12-15 08:07 | SUR.PREOP ---
The eye drops brought by the patient (Ketorolac and Prednisolone) are examined and I have determined they are labeled by the patient's pharmacy for this patient as prescribed by the surgeon. The bottles are intact, recently obtained and appear to be correct.talib ruiz rn
--- NOTE | 2022-12-15 08:16 | W.ANESCHARGE ---
Anesthesia Charges Start Date/Time Anesthesia Start Date: 12/15/22 Anesthesia Start Time: 08:38 Stop Date/Time Anesthesia Stop Date: 12/15/22 Anesthesia Stop Time: 09:10
--- NOTE | 2022-12-15 08:25 | W.ANESCHARGE ---
Anesthesia Charges Start Date/Time Anesthesia Start Date: 12/15/22 Anesthesia Start Time: 08:38 Stop Date/Time Anesthesia Stop Date: 12/15/22
[2022-12-15] MEDS: TETRACAINE 0.5% OPHTH 2 DROP EYE-RIGHT (08:41)
[2022-12-15] MEDS: BALANCED SALT IRRIG SOLN 15 ML EYE-RIGHT (08:45)
--- NOTE | 2022-12-15 09:07 | W.PM.OPTPROC ---
Procedure Note Date of procedure: 12/15/22 Will [facility] bill your pro fee for this procedure?: Yes Procedure Description: SURGEON: aYncy Valles MD PREOPERATIVE DIAGNOSIS: Nuclear sclerotic cataract, right eye. POSTOPERATIVE DIAGNOSIS: Nuclear sclerotic cataract, right eye. NAME OF OPERATION: Phacoemulsification of cataract with posterior chamber intraocular lens implantation in the right eye. ANESTHESIA: Topical. ESTIMATED BLOOD LOSS: Less than 2 cc. COMPLICATIONS: None. PATHOLOGY SPECIMEN: None. INDICATIONS: See consult note for details. The risks, benefits and alternatives of the procedure were explained to the patient, who elected to proceed and signed informed consent to do so. PROCEDURE: The patient was brought to the pre-holding area where the right eye was identified as the operative eye. I placed my initials above this eye. The patient received eye drops consisting of 0.5% tetracaine, 1% tropicamide, 10% phenylephrine, and 0.5% ketorolac. The patient was then brought to the operating room where the right eye was again identified as the operative eye. The eye was prepped with Betadine and draped in the usual sterile ophthalmic fashion. A #15 super-sharp blade was used to create a paracentesis site. 1% non-preserved intracameral lidocaine was injected into the anterior chamber. Endocoat was injected into the anterior chamber. A 2.4 mm keratome was used to create a three-plane self-sealing incision 1 mm anterior to the temporal limbus. A cystotome was used to create an anterior capsular leaflet. The Utrata forceps were used to extend this to form a continuous curvilinear capsulorrhexis. Hydrodissection was performed. The cataract was removed with phacoemulsification using the udfzdy-wah-qwkreku technique. The irrigation and aspiration tip was used to remove the remaining cortex. Healon was injected into the capsular bag. An PAUL ZCB00 intraocular lens of 16.5 diopters was injected into the capsular bag. The irrigation and aspiration tip was used to remove the remaining viscoelastic. Balanced salt solution on a cannula was used to hydrate the wound, and the wound was found to be watertight. The pupil was noted to be round. DISPOSITION: The patient was taken to the recovery room and discharged to home in stable condition. The patient was instructed to call me or go to the emergency department with any sudden change, including dramatic loss of vision, severe pain in the eye or eyebrow region, nausea, or vomiting. The patient will follow up in the clinic tomorrow morning.
[2022-12-15 09:26] VITALS: BP 132/60; PULSE 99; RESP 16; TEMP 36.4; O2SAT 97
--- NOTE | 2022-12-15 10:39 | W.ANESCHARGE ---
Anesthesia Charges Start Date/Time Anesthesia Start Date: 12/15/22 Anesthesia Start Time: 08:38 Stop Date/Time Anesthesia Stop Date: 12/15/22 Anesthesia Stop Time: 09:10
== END 2022-12-15 09:38 | disposition home or self-care (01) ==
PROVIDERS: PCP Family Medicine; Visit Provider Ophthalmology
PROC: (CPT 66984; principal; 2022-12-15 07:30)
DX: H25.11 Age-related nuclear cataract, right eye (principal)
CPT/HCPCS: 66984; 00142; A9270; J2250; J3010; V2632

== ENCOUNTER 2023-01-05 07:30 | Day surgery (SDC) | payer MEDICARE, BC, SELFPAY ==
[2023-01-05] MEDS: TETRACAINE 0.5% OPHTH 1 DROP EYE-LEFT ×2 (07:45→07:50)
[2023-01-05] MEDS: KETOROLAC OPHTH 0.5% 1 DROP EYE-LEFT ×2 (07:45→07:50)
[2023-01-05 07:46] VITALS: BMI 31.4
[2023-01-05 07:51] VITALS: BP 139/84; PULSE 100; RESP 16; TEMP 36.8; O2SAT 95
--- NOTE | 2023-01-05 07:55 | W.ANESCHARGE ---
Anesthesia Charges Start Date/Time Anesthesia Start Date: 01/05/23 Anesthesia Start Time: 08:30 Stop Date/Time Anesthesia Stop Date: 01/05/23 Anesthesia Stop Time: 09:02
[2023-01-05] MEDS: SODIUM CHLORIDE 0.9 % (FLUSH) 10 ML SYRINGE IVF (08:00)
--- NOTE | 2023-01-05 08:08 | SUR.PREOP ---
The eye drops brought by the patient (Ketorolac and Prednisolone) are examined and I have determined they are labeled by the patient's pharmacy for this patient as prescribed by the surgeon. The bottles are intact, recently obtained and appear to be correct.
[2023-01-05] MEDS: TETRACAINE 0.5% OPHTH 2 DROP EYE-LEFT (08:35)
[2023-01-05] MEDS: BALANCED SALT IRRIG SOLN 15 ML EYE-LEFT (08:40)
--- NOTE | 2023-01-05 08:40 | W.ANESCHARGE ---
Anesthesia Charges Start Date/Time Anesthesia Start Date: 01/05/23 Anesthesia Start Time: 08:30 Stop Date/Time Anesthesia Stop Date: 01/05/23 Anesthesia Stop Time: 09:02
[2023-01-05 08:59] VITALS: BP 123/76; PULSE 90; RESP 16; TEMP 36.9; O2SAT 96
--- NOTE | 2023-01-05 09:04 | P.OPTPRC_ITS ---
Procedure Note Date of procedure: 01/05/23 Will [facility] bill your pro fee for this procedure?: Yes Procedure Description: SURGEON: Yancy Valles MD PREOPERATIVE DIAGNOSIS: Nuclear sclerotic cataract, left eye. POSTOPERATIVE DIAGNOSIS: Nuclear sclerotic cataract, left eye. NAME OF OPERATION: Phacoemulsification of cataract with posterior chamber intraocular lens implantation in the left eye. ANESTHESIA: Topical. ESTIMATED BLOOD LOSS: Less than 2 cc. COMPLICATIONS: None. PATHOLOGY SPECIMEN: None. INDICATIONS: See consult note for details. The risks, benefits and alternatives of the procedure were explained to the patient, who elected to proceed and signed informed consent to do so. PROCEDURE: The patient was brought to the pre-holding area where the left eye was identified as the operative eye. I placed my initials above this eye. The patient received eye drops consisting of 0.5% tetracaine, 1% tropicamide, 10% phenylephrine, and 0.5% ketorolac. The patient was then brought to the operating room where the left eye was again identified as the operative eye. The eye was prepped with Betadine and draped in the usual sterile ophthalmic fashion. A #15 super-sharp blade was used to create a paracentesis site. 1% non-preserved intracameral lidocaine was injected into the anterior chamber. Endocoat was injected into the anterior chamber. A 2.4 mm keratome was used to create a three-plane self-sealing incision 1 mm anterior to the temporal limbus. A cystotome was used to create an anterior capsular leaflet. The Utrata forceps were used to extend this to form a continuous curvilinear capsulorrhexis. Hydrodissection was performed. The cataract was removed with phacoemulsification using the [id number]-[id number] technique. The irrigation and aspiration tip was used to remove the remaining cortex. Healon was injected into the capsular bag. An PAUL ZCB00 intraocular lens of 20.5 diopters was injected into the capsular bag. The irrigation and aspiration tip was used to remove the remaining viscoelastic. Balanced salt solution on a cannula was used to hydrate the wound, and the wound was found to be watertight. The pupil was noted to be round. DISPOSITION: The patient was taken to the recovery room and discharged to home in stable condition. The patient was instructed to call me or go to the emergency department with any sudden change, including dramatic loss of vision, severe pain in the eye or eyebrow region, nausea, or vomiting. The patient will follow up in the clinic tomorrow morning.
== END 2023-01-05 09:29 | disposition home or self-care (01) ==
LOC: OR 07:30
PROVIDERS: PCP Family Medicine; Visit Provider Ophthalmology
PROC: (CPT 66984; principal; 2023-01-05 07:30)
DX: H25.12 Age-related nuclear cataract, left eye (principal)
CPT/HCPCS: 66984; 142; A9270; J2250; J3010; V2632

== ENCOUNTER 2023-01-25 10:26 | Outpatient (CLI) | payer MEDICARE, BC, SELFPAY ==
--- NOTE | 2023-01-25 10:45 | CRLHL7_ITS ---
For Patients: As a result of the Cures Act, medical imaging exams and procedure reports are released immediately into your electronic medical record. You may view this report before your referring provider. If you have questions, please contact your health care provider. BILATERAL SCREENING MAMMOGRAM WITH COMPUTER-AIDED DETECTION AND TOMOSYNTHESIS TECHNIQUE: CC and MLO views were obtained. These mammographic images have been obtained using full-field digital technique. These mammographic images were interpreted with the benefit of computer-aided detection. Breast Tomosynthesis was used in this interpretation. COMPARISON FILM: 12/30/21, 10/24/20, 08/13/19. FINDINGS: The breasts are heterogeneously dense, which may obscure small masses IMPRESSION: There is no radiographic evidence for malignancy. ASSESSMENT: BI-RADS Category 1: Negative RECOMMENDATION: Routine screening mammogram in 1 year. A lay language report of this examination will be provided to the patient. KAYLA PADRON M.D. Diagnostic/Nuclear Medicine Radiologist [email or web address] Transcribed: 8:31 a.mRicky gardiner/Dictated by: Kayla Padron MD @ 01/25/2023 11:17:00 AM (Electronically Signed)
== END 2023-01-25 10:27 | disposition home or self-care (01) ==
PROVIDERS: PCP Family Medicine; Visit Provider Family Medicine
DX: Z12.31 Encounter for screening mammogram for malignant neoplasm of breast (principal); R92.2 Inconclusive mammogram
CPT/HCPCS: 77063; 77067

== ENCOUNTER 2023-04-29 08:14 | Outpatient (CLI) | payer MEDICARE, BC, SELFPAY | END 2023-04-29 08:15 | disposition home or self-care (01) | LOC: NFLDREF 05-02 06:49 | PROVIDERS: PCP Family Medicine; Referring Provider Family Medicine; Visit Provider Family Medicine | DX: E03.9 Hypothyroidism, unspecified (principal); E55.9 Vitamin D deficiency, unspecified; E78.5 Hyperlipidemia, unspecified; K52.9 Noninfective gastroenteritis and colitis, unspecified | CPT/HCPCS: 80053; 80061; 82306; 84439; 84443 ==

== ENCOUNTER 2023-06-03 14:56 | Outpatient (CLI) | payer MEDICARE, BC, SELFPAY ==
--- OUTSIDE RECORDS SUMMARY | 2023-06-03 14:59 | XMS_ITS ---
Author Name Unknown Organization [facility] Address [address] [place] [address] Care Team Providers Care Material Attendant Name Role Phone Unavailable Unavailable Unavailable Surgery Details Not on file Complications Check Surgery Details section. Procedure Estimated Blood Loss Check Surgery Details section. Procedure Findings Check Surgery Details section. Procedure Specimens Taken Check Surgery Details section.
--- OUTSIDE RECORDS SUMMARY | 2023-06-03 14:59 | XMS_ITS | Clinical Summary ---
Author Name Unknown Organization [facility] Address [place], [place] [address] Care Team Providers Care Manager Fund Name Role Phone Pcp, No Primary Care Provider Unavailabl e Allergies No known active allergies Medications Medication Sig Dispensed Refills Start Date End Date Status cetirizine (ZYRTEC) 10 mg tablet Take 10 mg by mouth once daily if needed. Active SUMAtriptan (IMITREX) 50 mg tablet Take 50 mg by mouth one time if needed for Migraine. May repeat dose once in 2 hours if migraine is unresolved. 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 Purchase, lifetime need. Single point cane needed for safe transfers and ambulation. 1 Each 03/15/2022 Active DULoxetine (CYMBALTA) 30 mg Delayed-release capsuleIndications:A nxiety Take 1 Capsule (30 mg) by mouth two times daily. 60 Capsule 03/18/2022 Active melatonin 3 mg tabletIndications:Gu illain Juarez?? syndrome (HC) Take 3 Tablets (9 mg) by mouth at bedtime. 0 03/18/2022 Active multivitamin folic acid 0.4 mgIndications:Guilla in Juarez?? syndrome (HC) Take 1 Tablet by mouth once daily. 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 Max acetaminophen dose: 4000mg in 24 hrs. 0 03/18/2022 Active traZODone (DESYREL) 50 mg tabletIndications:Gu illain Juarez?? syndrome (HC) Take 1 Tablet (50 mg) by mouth at bedtime. 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 90 Capsule 03/18/2022 Active apixaban (Eliquis) 5 mg tabletIndications:pu lmonary thromboembolism Take 1 Tablet (5 mg) by mouth two times daily. 60 Tablet 03/19/2022 Active levothyroxine (SYNTHROID) 150 mcg tablet Take 150 mcg by mouth once daily. 03/21/2022 Active simvastatin (ZOCOR) 20 mg tablet Take 20 mg by mouth at bedtime. 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 Hyperlipidemia 02/26/2022 Hypothyroid 02/26/2022 Tetraparesis 02/26/2022 Anxiety 02/26/2022 Neuropathic pain 02/26/2022 Immunizations Name Administration Dates Next Due Pneumococcal Poly,23-Valent (Pneumovax) 10/22/19 22 Tdap 10/21/2021,10/25/2011 Social History Tobacco Use Types Packs/Day Years Used Date Smoking Tobacco: Every Day Cigarettes Smokeless Tobacco: Never Tobacco Cessation:Ready to Q uit: Not Asked; Counseling Given: Not Answered Alcohol Use Standard Drinks/Week Comments Yes 0 (1 standard drink = 0.6 oz pur e alcohol) occasional PHQ-2 Answer Date Recorded PHQ-2 TOTAL SCORE 0 05/04/2022 Social Connections Answer Date Recorded Frequency of Communication with Friends and Fami ly Not on file 05/18/2022 Sex and Gender Information Value Date Recorded Sex Assigned at Not on file Gender Identity Not on file Sexual Orientation Not on file Obstetrics History Last Filed Vital Signs Vital Sign Reading Time Taken Comments Blood Pressure 122/58 05/04/2022 2:08 PM CDT Pulse 122 05/04/2022 2:08 PM CDT Temperature 37.2 ??C (98.9 ??F) 03/19/2022 6:00 AM CS T Respiratory Rate 18 03/19/2022 6:00 AM TRAFFIC SUPERVISOR Oxygen Saturation 94% 05/04/2022 2:08 PM CDT Inhaled Oxygen Concentration - - Weight 87.8 kg (193 lb 9 oz) 03/16/2022 6:00 AM TRAFFIC SUPERVISOR Height 172.7 cm (5' 8) 02/26/2022 2:15 PM TRAFFIC SUPERVISOR Body Mass Index 29.43 02/26/2022 2:15 PM TRAFFIC SUPERVISOR Plan of Treatment Health Maintenance Due Date Last Done Comments BMI (ht and wt on same day) for age 18+ 1975 Hepatitis C screening for ag e 18-79 1975 Colonoscopy through age 75 2002 Lipids for age 45-75 2002 Mammogram for age 45-75 2002 Zoster (shingles) series for age 50+ (1 of 2) 2007 DEXA/DXA scan for age 65+ 2022 Medicare Wellness for age 65+ 2022 COVID-19 vaccine series (2022-24 season) 2022 11/04/2021, 05/27/2021, 12/01/2020, Additional history exists Pneumococcal series for age 65+ (2 of 2 - PCV) 10/21/2022 10/21/2021 Depression screening for age 12+ 05/05/2023 05/05/19 23 Influenza for age 65+ 10/09/2023 Tetanus booster 10/22/2031 10/21/2021, 10/25/2011 Tdap Completed 10/21/2021, 10/25/2011 Advance Directives * Full Code (Latest Code Status on File) Date Activated Date Inactivated Comments 02/26/2022 3:09 PM 03/19/2022 1:06 PM Question Answer Comments Code Status Discussion: Reviewed Neftali mayers Physician reviewed on admission Care Teams Manager Fund Relationship Specialty Start Date End Date Pcp, No . PCP - General 02/26/22
--- OUTSIDE RECORDS SUMMARY | 2023-06-03 14:59 | XMS_ITS | Referral Summary ---
Author Name Unknown Organization [facility] Address [address] [place] [address] Care Team Providers Care Hearing Aid Assistant Name Role Phone Elsewhere, Pcp Primary Care Provider Unavailabl e Source Comments Patient records contain information from all sites at [facility]. For routine questions regarding patient records, call [phone] during business hours, M-F 8:00 AM - 5:00 PM Central Time. Record requests for emergency care only can be directed to [phone] at any time.[facility] Allergies No known active allergies Medications Medication Sig Dispensed Refills Start Date End Date Status simvastatin (ZOCOR) 20 mg tablet Take 20 mg by mouth at bedtime. Active SUMAtriptan (IMITREX) 50 mg tablet Take 50 mg by mouth as needed for migraine. May repeat dose once in 2 hours if migraine is unresolved. Do not exceed 200 mg in 24 hours. Active cetirizine (ZyrTEC) 10 mg tablet Take 10 mg by mouth daily as needed for allergies. Active multivitamin tablet Take 1 tablet by mouth daily. Active gabapentin (NEURONTIN) 400 mg capsule Take 3 capsules (1,200 mg total) by mouth every 8 (eight) hours. 30 capsule 02/24/2022 Active Additional Information Patient not taking.Reported on 04/15/2022 DULoxetine (CYMBALTA) [address] capsule Take 1 capsule (30 mg total) by mouth 2 (two) times a day. 60 capsule 02/24/2022 Active levothyroxine (SYNTHROID, LEVOTHROID) 175 mcg tablet Take 1 tablet (175 mcg total) by mouth every morning before breakfast. 02/24/2022 Active levothyroxine (SYNTHROID, LEVOTHROID) 175 mcg tablet Take 1 tablet (175 mcg total) by mouth every morning before breakfast. 30 tablet 02/26/2022 Active Additional Information Patient not taking.Reported on 04/15/2022 pregabalin (LYRICA) 100 mg capsule Take 100 mg by mouth 3 (three) times a day. Active DULoxetine (CYMBALTA) [address] capsule Take 30 mg by mouth 2 (two) times a day. Active Active Problems Problem Noted Date Diagnosed Date Ileus 02/11/2022 Guillain [place] Syndrome 02/05/2022 Quadriparesis 02/05/2022 Acute Respiratory Failure With Hypercapnia 02/05 Social History Tobacco Use Types Packs/Day Years Used Date Smoking Tobacco: Never Tobacco Cessation:Counseling Given: Not Answered Nutrition Answer Date Recorded Nutrition: EVOO Fat Source Unknown 02/05 Nutrition: Servings of Fruits/Vegetables per Day Not on file 02/05/2022 Dental Answer Date Recorded Dental: Regular Dentist Unknown 02/06/20 Sex and Gender Information Value Date Recorded Sex Assigned at Not on file Gender Identity Not on file Sexual Orientation Not on file Last Filed Vital Signs Vital Sign Reading Time Taken Comments Blood Pressure 124/78 02/26/2022 11:15 AM ESCROW REPRESENTATIVE Pulse 93 02/26/2022 11:15 AM ESCROW REPRESENTATIVE Temperature 36.3 ??C (97.3 ??F) 04/15/2022 1:02 PM CS T Respiratory Rate 16 02/26/2022 11:15 AM ESCROW REPRESENTATIVE Oxygen Saturation 98% 02/26/2022 11:15 AM ESCROW REPRESENTATIVE Inhaled Oxygen Concentration - - Weight 88 kg (194 lb 0.1 oz) 04/15/2022 1:02 PM ESCROW REPRESENTATIVE Height 173.8 cm (5' 8.43) 04/15/2022 1:02 PM CS T Body Mass Index 29.13 04/15/2022 1:02 PM ESCROW REPRESENTATIVE Plan of Treatment Not on file Procedures Procedure Name Priority Date/Time Associated Diagnosis Comments EXTI COMPREHENSIVE METABOLIC PANEL, S/P Routine 03/02/2022 4:15 AM ESCROW REPRESENTATIVE THYROID-STIMULATING HORMONE-SENSITIVE (S-TSH) Routine 02/23/2022 4:53 AM ESCROW REPRESENTATIVE from Last 3 Months or Most Recently Relevant to Health Maintenance Results * (ABNORMAL) S-TSH (Thyroid-Stimulating Hormone - Sensitive) (02/23/2022 4:53 AM ESCROW REPRESENTATIVE) TSH, Sensitive 6.0(H) 0.3 - 4.2 mIU/L 02/23/2022 6:30 AM ESCROW REPRESENTATIVE DTL Blood (Blood, Venous) 02/23/2022 4:53 AM ESCROW REPRESENTATIVE 02/23/2022 6:04 AM ESCROW REPRESENTATIVE Regla Baldwin M.D. LAB BLOOD ADD-ON [facility] [address] [place] [address], [place] [facility] [address] [place] [address] from Last 3 Months or Most Recently Relevant to Health Maintenance Advance Directives For more information, please contact: [phone] * Full Code (Latest Code Status on File) Date Activated Date Inactivated Comments 02/05/2022 7:45 AM 02/26/2022 2:15 PM Question Answer Comments Full Code: Discussed Care Teams Hearing Aid Assistant Relationship Specialty Start Date End Date Elsewhere, Pcp PCP - General 01/20/18
--- OUTSIDE RECORDS SUMMARY | 2023-06-03 14:59 | XMS_ITS | Clinical Summary ---
Author Name Unknown Organization [facility] Address [address] [place] [address] Care Team Providers Care Raw Stock Drier Tender Name Role Phone Elsewhere, Pcp Primary Care Provider Unavailabl e Source Comments Patient records contain information from all sites at [facility]. For routine questions regarding patient records, call [phone] during business hours, M-F 8:00 AM - 5:00 PM Central Time. Record requests for emergency care only can be directed to [phone] at any time.[facility] Allergies No known active allergies Medications [...] Noted Date Diagnosed Date Ileus 02/11/2022 Guillain [place] Syndrome 02/05/2022 Quadriparesis 02/05/2022 Acute Respiratory Failure [...] Comments Blood Pressure 124/78 02/26/2022 11:15 AM MUSHROOM GROWING SUPERVISOR Pulse 93 02/26/2022 11:15 AM MUSHROOM GROWING SUPERVISOR Temperature 36.3 ??C (97.3 ??F) 04/15/2022 1:02 PM CS T Respiratory Rate 16 02/26/2022 11:15 AM MUSHROOM GROWING SUPERVISOR Oxygen Saturation 98% 02/26/2022 11:15 AM MUSHROOM GROWING SUPERVISOR Inhaled Oxygen Concentration - - Weight 88 kg (194 lb 0.1 oz) 04/15/2022 1:02 PM MUSHROOM GROWING SUPERVISOR Height 173.8 cm (5' 8.43) 04/15/2022 1:02 PM CS T Body Mass Index 29.13 04/15/2022 1:02 PM MUSHROOM GROWING SUPERVISOR Plan of Treatment Health Maintenance Due Date Last Done Comments Bone Density Scan (Osteoporo sis Screen) 1957 CT Colonography 1957 Cologuard 1957 Colonoscopy 1957 Colorectal Cancer Screening 1957 FIT 1957 Hepatitis C Screening 1955 Mammogram 1957 Zoster Vaccines (1 of 2) 2007 Pneumococcal vaccine (65+ ye ars) (2 of 2 - PCV) 10/21/2022 10/21/2021 Influenza Vaccine (#1) 2022 2, 12/11/2010, 12/16/2009, Additional history exists Depression Screening (Annual PHQ-2) 02/07/2023 Fall Risk Screen (Annual) 02/07/2023 Thyroid Stimulating Hormone (TSH) test for thyroid function 02/23/2023 02/23/2022, 02/23/2022 COVID-19 Vaccine (6 - 2022-2 4 season) 2023 11/30/2022, 11/04/2021, 05/27/2021, Additional history exists Fasting Glucose for Diabetes Screening 03/02/2025 03/02/2022, 02/27/2022, 02/23/2022, Additional history exists DTaP,Tdap,and Td Vaccines (3 - Td or Tdap) 10/22/2031 10/21/2021, 10/25/2011 Procedures Procedure Name Priority Date/Time Associated Diagnosis Comments EXTI COMPREHENSIVE METABOLIC PANEL, S/P Routine 03/02/2022 4:15 AM MUSHROOM GROWING SUPERVISOR THYROID-STIMULATING HORMONE-SENSITIVE (S-TSH) Routine 02/23/2022 4:53 AM MUSHROOM GROWING SUPERVISOR from Last 3 Months or Most Recently Relevant to Health Maintenance Results * (ABNORMAL) S-TSH (Thyroid-Stimulating Hormone - Sensitive) (02/23/2022 4:53 AM MUSHROOM GROWING SUPERVISOR) TSH, Sensitive 6.0(H) 0.3 - 4.2 mIU/L 02/23/2022 6:30 AM MUSHROOM GROWING SUPERVISOR DTL Blood (Blood, Venous) 02/23/2022 4:53 AM MUSHROOM GROWING SUPERVISOR 02/23/2022 6:04 AM MUSHROOM GROWING SUPERVISOR Regla Baldwin M.D. LAB BLOOD ADD-ON [address] [address], [facility] DTL [facility] [address] [place] [address] from Last 3 Months or Most Recently Relevant to Health Maintenance Advance Directives For more information, please contact: [phone] * Full Code (Latest Code Status on File) Date Activated Date Inactivated Comments 02/05/2022 7:45 AM 02/26/2022 2:15 PM Question Answer Comments Full Code: Discussed Care Teams Raw Stock Drier Tender Relationship Specialty Start Date End Date Elsewhere, Pcp PCP - General 01/20/18
--- NOTE | 2023-06-03 15:00 | CT_ITS ---
Patient: CHEYENNE HUNT Facility:?[facility] Patient ID:?[id number] Site Patient ID:?[id number] Site :?1955 Study:?CT-Chest W/O LOW DOSE LUNG SCREENING-06/03/2023 3:28:38 PM Ordering Physician:VARINDER Final Report: INDICATION: Lung cancer screening. TECHNIQUE: Noncontrast CT images of the chest. COMPARISON: CT chest 05/26/2022. FINDINGS: The previously described 7 mm nodule within the left upper lobe has resolved. Stable 3 mm solid nodule left upper lobe (series 3 image 41). No new or enlarging pulmonary nodules. Mild biapical scarring. Mild paraseptal emphysema in the upper lobes. No focal consolidation, pleural effusion, or pneumothorax. Mild scarring/atelectasis in the lingula. The heart size is normal. No pericardial effusion. Minimal coronary artery atherosclerotic calcifications. No mediastinal or hilar lymphadenopathy. Limited images through the upper abdomen are unremarkable. Multilevel thoracic spondylosis. No aggressive osseous lesions. IMPRESSION: Stable small left upper lobe pulmonary nodule. Lung rads category 2, benign. Continue annual screening with low-dose chest CT in 12 months. Please note that all CT scans at this facility use dose modulation, iterative reconstruction, and/or weight-based dosing when appropriate to reduce radiation dose to as low as reasonably achievable. Dictated by Ron Montenegro MD @ 06/05/2023 5:03:46 PM Signed by:?Ron Montenegro MD @06/05/2023 5:03:46 PM (Electronic Signature)
== END 2023-06-03 14:57 | disposition home or self-care (01) ==
PROVIDERS: PCP Family Medicine; Visit Provider Family Medicine
DX: R91.1 Solitary pulmonary nodule (principal); Z12.2 Encounter for screening for malignant neoplasm of respiratory organs; Z72.0 Tobacco use; Z87.891 Personal history of nicotine dependence
CPT/HCPCS: 71271

== ENCOUNTER 2023-08-02 08:02 | Outpatient (CLI) | payer MEDICARE, BC, SELFPAY ==
--- OUTSIDE RECORDS SUMMARY | 2023-08-04 15:46 | XMS_ITS | Clinical Summary ---
Author Organization [facility] Address [place], [place] [address] Care Team Providers Care Ergonomics Technician Name Role Phone Pcp, No Primary Care [...] T Respiratory Rate 18 03/19/2022 6:00 AM MEDICAL ONCOLOGY PHYSICIAN Oxygen Saturation 94% 05/04/2022 2:08 PM CDT Inhaled Oxygen Concentration - - Weight 87.8 kg (193 lb 9 oz) 03/16/2022 6:00 AM MEDICAL ONCOLOGY PHYSICIAN Height 172.7 cm (5' 8) 02/26/2022 2:15 PM MEDICAL ONCOLOGY PHYSICIAN Body Mass Index 29.43 02/26/2022 2:15 PM MEDICAL ONCOLOGY PHYSICIAN Plan of Treatment Health Maintenance Due Date [...] mayers Physician reviewed on admission Care Teams Ergonomics Technician Relationship Specialty Start Date End Date Pcp, No . PCP - General 02/26/22
--- OUTSIDE RECORDS SUMMARY | 2023-08-04 15:46 | XMS_ITS ---
Author Organization [facility] Address [address] [place] [address] Care Team Providers Care Powder Shoveler Name Role Phone Unavailable Unavailable Unavailable Surgery Details Not on file Complications Check Surgery Details section. Procedure Estimated Blood Loss Check Surgery Details section. Procedure Findings Check Surgery Details section. Procedure Specimens Taken Check Surgery Details section.
--- OUTSIDE RECORDS SUMMARY | 2023-08-04 15:46 | XMS_ITS | Clinical Summary ---
Author Organization [facility] Address [address] [place] [address] Care Team Providers Care Media Operator Name Role Phone Elsewhere, Pcp Primary Care Provider Unavailabl e Source Comments Patient records contain information from all sites at [facility]. For routine questions regarding patient records, call [phone] during business hours, M-F 8:00 AM - 5:00 PM Central Time. Record requests for emergency care only can be directed to [phone] at any time.[facility] Allergies No known active allergies Medications Medication [...] Noted Date Diagnosed Date Ileus 02/11/2022 Guillain [place] Syndrome 02/05/2022 Quadriparesis 02/05/2022 Acute Respiratory Failure [...] Comments Blood Pressure 124/78 02/26/2022 11:15 AM SHEET CUTTER Pulse 93 02/26/2022 11:15 AM SHEET CUTTER Temperature 36.3 ??C (97.3 ??F) 04/15/2022 1:02 PM CS T Respiratory Rate 16 02/26/2022 11:15 AM SHEET CUTTER Oxygen Saturation 98% 02/26/2022 11:15 AM SHEET CUTTER Inhaled Oxygen Concentration - - Weight 88 kg (194 lb 0.1 oz) 04/15/2022 1:02 PM SHEET CUTTER Height 173.8 cm (5' 8.43) 04/15/2022 1:02 PM CS T Body Mass Index 29.13 04/15/2022 1:02 PM SHEET CUTTER Plan of Treatment Health Maintenance Due Date [...] METABOLIC PANEL, S/P Routine 03/02/2022 4:15 AM SHEET CUTTER THYROID-STIMULATING HORMONE-SENSITIVE (S-TSH) Routine 02/23/2022 4:53 AM SHEET CUTTER from Last 3 Months or Most Recently Relevant to Health Maintenance Results * (ABNORMAL) S-TSH (Thyroid-Stimulating Hormone - Sensitive) (02/23/2022 4:53 AM SHEET CUTTER) TSH, Sensitive 6.0(H) 0.3 - 4.2 mIU/L 02/23/2022 6:30 AM SHEET CUTTER DTL Blood (Blood, Venous) 02/23/2022 4:53 AM SHEET CUTTER 02/23/2022 6:04 AM SHEET CUTTER Regla Baldwin M.D. LAB BLOOD ADD-ON [facility] [address] [place] [address], [facility] DTL [facility] [address] [place] [address] from Last 3 Months or Most Recently Relevant to Health Maintenance Advance Directives For more information, please contact: [phone] * Full Code (Latest Code Status on File) Date Activated Date Inactivated Comments 02/05/2022 7:45 AM 02/26/2022 2:15 PM Question Answer Comments Full Code: Discussed Care Teams Media Operator Relationship Specialty Start Date End Date Elsewhere, Pcp PCP - General 01/20/18
--- OUTSIDE RECORDS SUMMARY | 2023-08-04 15:46 | XMS_ITS | Referral Summary ---
Author Organization [facility] Address [address] [place] [address] Care Team Providers Care Recruiting Internship Name Role Phone Elsewhere, Pcp Primary Care Provider Unavailabl e Source Comments Patient records contain information from all sites at [facility]. For routine questions regarding patient records, call [phone] during business hours, M-F 8:00 AM - 5:00 PM Central Time. Record requests for emergency care only can be directed to [phone] at any time.[facility] Allergies No known active allergies Medications Medication [...] Noted Date Diagnosed Date Ileus 02/11/2022 Guillain [place] Syndrome 02/05/2022 Quadriparesis 02/05/2022 Acute Respiratory Failure [...] Comments Blood Pressure 124/78 02/26/2022 11:15 AM PRACTICAL NURSING FACULTY Pulse 93 02/26/2022 11:15 AM PRACTICAL NURSING FACULTY Temperature 36.3 ??C (97.3 ??F) 04/15/2022 1:02 PM CS T Respiratory Rate 16 02/26/2022 11:15 AM PRACTICAL NURSING FACULTY Oxygen Saturation 98% 02/26/2022 11:15 AM PRACTICAL NURSING FACULTY Inhaled Oxygen Concentration - - Weight 88 kg (194 lb 0.1 oz) 04/15/2022 1:02 PM PRACTICAL NURSING FACULTY Height 173.8 cm (5' 8.43) 04/15/2022 1:02 PM CS T Body Mass Index 29.13 04/15/2022 1:02 PM PRACTICAL NURSING FACULTY Plan of Treatment Not on file Procedures Procedure Name Priority Date/Time Associated Diagnosis Comments EXTI COMPREHENSIVE METABOLIC PANEL, S/P Routine 03/02/2022 4:15 AM PRACTICAL NURSING FACULTY THYROID-STIMULATING HORMONE-SENSITIVE (S-TSH) Routine 02/23/2022 4:53 AM PRACTICAL NURSING FACULTY from Last 3 Months or Most Recently Relevant to Health Maintenance Results * (ABNORMAL) S-TSH (Thyroid-Stimulating Hormone - Sensitive) (02/23/2022 4:53 AM PRACTICAL NURSING FACULTY) TSH, Sensitive 6.0(H) 0.3 - 4.2 mIU/L 02/23/2022 6:30 AM PRACTICAL NURSING FACULTY DTL Blood (Blood, Venous) 02/23/2022 4:53 AM PRACTICAL NURSING FACULTY 02/23/2022 6:04 AM PRACTICAL NURSING FACULTY Regla Baldwin M.D. LAB BLOOD ADD-ON [facility] [address] [place] [address], [place] [facility] [address] [place] [address] from Last 3 Months or Most Recently Relevant to Health Maintenance Advance Directives For more information, please contact: [phone] * Full Code (Latest Code Status on File) Date Activated Date Inactivated Comments 02/05/2022 7:45 AM 02/26/2022 2:15 PM Question Answer Comments Full Code: Discussed Care Teams Recruiting Internship Relationship Specialty Start Date End Date Elsewhere, Pcp PCP - General 01/20/18
== END 2023-08-02 08:03 | disposition home or self-care (01) ==
LOC: NFLDREF 08-04 15:44
PROVIDERS: PCP Family Medicine; Referring Provider Family Medicine; Visit Provider Family Medicine
DX: E03.9 Hypothyroidism, unspecified (principal)
CPT/HCPCS: 84439; 84443

== ENCOUNTER 2024-02-15 11:19 | Outpatient (CLI) | payer MEDICARE, BC, SELFPAY ==
--- NOTE | 2024-02-15 11:30 | CRLHL7_ITS ---
For Patients: As a result of the Century Cures Act, medical imaging exams and procedure reports are released immediately into your electronic medical record. You may view this report before your referring provider. If you have questions, please contact your health care provider. BILATERAL SCREENING MAMMOGRAM WITH COMPUTER-AIDED DETECTION AND TOMOSYNTHESIS TECHNIQUE: CC and MLO views were obtained. These mammographic images have been obtained using full-field digital technique. These mammographic images were interpreted with the benefit of computer-aided detection. Breast Tomosynthesis was used in this interpretation. COMPARISON FILM: 01/25/23, 12/30/21, 10/24/20. FINDINGS: The breasts are heterogeneously dense, which may obscure small masses. IMPRESSION: There is no radiographic evidence for malignancy. ASSESSMENT: BI-RADS Category 1: Negative RECOMMENDATION: Routine screening mammogram in 1 year. A lay language report of this examination will be provided to the patient. Jonathon Stevens M.D. Diagnostic Radiologist [email or web address] SP/Dictated by: Jonathon Stevens MD @ 02/15/2024 12:53:00 PM (Electronically Signed)
== END 2024-02-15 11:20 | disposition home or self-care (01) ==
LOC: MAMMO 11:20
PROVIDERS: PCP Family Medicine; Visit Provider Family Medicine
DX: Z12.31 Encounter for screening mammogram for malignant neoplasm of breast (principal); R92.333 Mammographic heterogeneous density, bilateral breasts
CPT/HCPCS: 77063; 77067

== ENCOUNTER 2024-05-07 08:35 | Outpatient (CLI) | payer MEDICARE, BC, SELFPAY | END 2024-05-07 08:36 | disposition home or self-care (01) | LOC: NFLDREF 22:28 | PROVIDERS: PCP Family Medicine; Referring Provider Family Medicine; Visit Provider Family Medicine | DX: E78.5 Hyperlipidemia, unspecified (principal); E03.9 Hypothyroidism, unspecified; R53.83 Other fatigue | CPT/HCPCS: 80053; 80061; 84439; 84443 ==

== ENCOUNTER 2024-06-13 14:45 | Outpatient (CLI) | payer MEDICARE, BC, SELFPAY ==
--- NOTE | 2024-06-13 15:00 | CRLHL7_ITS ---
For Patients: As a result of the Century Cures Act, medical imaging exams and procedure reports are released immediately into your electronic medical record. You may view this report before your referring provider. If you have questions, please contact your health care provider. INDICATION: Lung cancer screening. History of smoking. High risk patient with greater than 50 pack-year smoking history. TECHNIQUE: Low-dose lung cancer screening non-contrast CT chest. Dose reduction techniques were used. COMPARISON: 06/03/2023 FINDINGS: NODULES: Small bilateral nodules are present bilaterally, measuring 4 millimeters or less. In addition, there is a new grouping of small nodules within the superior segment of the left lower lobe, measuring 6.6 millimeters in composite dimension. LUNGS AND PLEURA: COPD/emphysema. MEDIASTINUM: No adenopathy. CORONARY ARTERY CALCIFICATION: None. LIMITED UPPER ABDOMEN: Unremarkable. MUSCULOSKELETAL: Unremarkable. IMPRESSION: New cluster of small nodules in the superior segment of the left lower lobe measuring 6.6 millimeters in total. Smaller nodules elsewhere are similar. LUNG-RADS CATEGORY: 4A: Suspicious. RADIOLOGIST RECOMMENDATION: Low-dose CT chest in 3 months. Please note that all CT scans at this facility use dose modulation, iterative reconstruction, and/or weight-based dosing when appropriate to reduce radiation dose to as low as reasonably achievable. Dictated by Jonathon Stevens MD @ 06/13/2024 3:49:51 PM (Electronically Signed)
== END 2024-06-13 14:46 | disposition home or self-care (01) ==
LOC: CT 14:47
PROVIDERS: PCP Family Medicine; Visit Provider Family Medicine
DX: Z12.2 Encounter for screening for malignant neoplasm of respiratory organs (principal); F17.210 Nicotine dependence, cigarettes, uncomplicated
CPT/HCPCS: 71271

== ENCOUNTER 2024-09-07 13:50 | Outpatient (CLI) | payer MEDICARE, BC, SELFPAY ==
--- NOTE | 2024-09-07 14:00 | CRLHL7_ITS ---
For Patients: As a result of the Century Cures Act, medical imaging exams and procedure reports are released immediately into your electronic medical record. You may view this report before your referring provider. If you have questions, please contact your health care provider. INDICATION: Three-month follow-up TECHNIQUE: Low-dose lung cancer screening non-contrast CT chest. Dose reduction techniques were used. COMPARISON: 06/13/2024 FINDINGS: NODULES: Decreased conspicuity/resolution of the previously noted nodules in the superior segment of the left lower lobe. 3 millimeter nodule within the left upper lobe posteriorly, 05/05, is unchanged. Stable subpleural nodules within the right middle lobe, . LUNGS AND PLEURA: Stable scarring within the inferolateral lingula anteriorly. No pleural effusion. MEDIASTINUM: No adenopathy. CORONARY ARTERY CALCIFICATION: None. LIMITED UPPER ABDOMEN: Unremarkable. MUSCULOSKELETAL: No fracture. IMPRESSION: Resolution of inflammatory nodules within the superior segment of the left lower lobe. Stable small nodules elsewhere bilaterally. LUNG-RADS CATEGORY: 2: Benign. RADIOLOGIST RECOMMENDATION: Continue annual screening, if eligible, with low-dose CT chest in 12 months. Please note that all CT scans at this facility use dose modulation, iterative reconstruction, and/or weight-based dosing when appropriate to reduce radiation dose to as low as reasonably achievable. Dictated by Jonathon Stevens MD @ 09/10/2024 3:05:52 PM (Electronically Signed)
== END 2024-09-07 13:51 | disposition home or self-care (01) ==
LOC: CT 13:52
PROVIDERS: PCP Family Medicine; Visit Provider Family Medicine
DX: Z12.2 Encounter for screening for malignant neoplasm of respiratory organs (principal); Z87.891 Personal history of nicotine dependence
CPT/HCPCS: 71250

== ENCOUNTER 2024-10-17 12:21 | Emergency (ER) | payer MEDICARE, BC, SELFPAY ==
--- OUTSIDE RECORDS SUMMARY | 2024-10-17 12:22 | XMS_ITS | Clinical Summary ---
Author Organization [facility] Address [address] [place] [id number] Care Team Providers Care Occupational Rehabilitation Aide Name Role Phone Pcp, No Primary Care Provider Unavailabl e Allergies No known active allergies Medications cetirizine (ZYRTEC) 10 mg tablet Take 10 mg by mouth once daily if needed. Active SUMAtriptan (IMITREX) 50 mg tablet Take 50 mg by mouth one time if needed for Migraine. May repeat dose once in 2 hours if migraine is unresolved. Do not exceed 200 mg in 24 hours Active CaneIndications:Tet raparesis (HC),Guillain Juarez syndrome (HC) Single Point Cane for home use. Purchase, lifetime need. Single point cane needed for safe transfers and ambulation. 1 Each 03/15/19 23 Active DULoxetine (CYMBALTA) 30 mg Delayed-release capsuleIndications: Anxiety Take 1 Capsule (30 mg) by mouth two times daily. 60 Capsule 3 5:43 PM MACHINE FOLDER 03/18/19 23 Active melatonin 3 mg tabletIndications:G uillain Juarez syndrome (HC) Take 3 Tablets (9 mg) by mouth at bedtime. 0 03/18/19 23 Active multivitamin folic acid 0.4 mgIndications:Guill ain Juarez syndrome (HC) Take 1 Tablet by mouth once daily. 0 03/19/19 23 Active acetaminophen (TYLENOL) 325 mg tabletIndications:T etraparesis (HC),Guillain Juarez syndrome (HC) Take 2 Tablets (650 mg) by mouth 4 times daily if needed for Pain. Max acetaminophen dose: 4000mg in 24 hrs. 0 03/18/19 23 Active traZODone (DESYREL) 50 mg tabletIndications:G uillain Juarez syndrome (HC) Take 1 Tablet (50 mg) by mouth at bedtime. 15 Tablet 3 5:43 PM MACHINE FOLDER 03/18/19 23 Active pregabalin (LYRICA) 100 mg capsuleIndications: Tetraparesis (HC),Guillain Juarez syndrome (HC) Take 1 Capsule (100 mg) by mouth three times daily. 90 Capsule 3 9:43 AM MACHINE FOLDER 03/18/19 23 Active apixaban (Eliquis) 5 mg tabletIndications:p ulmonary thromboembolism Take 1 Tablet (5 mg) by mouth two times daily. 60 Tablet 3 5:43 PM MACHINE FOLDER 03/19/19 23 Active levothyroxine (SYNTHROID) 150 mcg tablet Take 150 mcg by mouth once daily. 03/21/19 23 Active simvastatin (ZOCOR) 20 mg tablet Take 20 mg by mouth at bedtime. 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 Hyperlipidemia 02/26/2022 Hypothyroid 02/26/2022 Tetraparesis 02/26/2022 Anxiety 02/26/2022 Neuropathic pain 02/26/2022 Immunizations Immunization Administration Dates Next Due Pneumococcal Poly,23-Valent (Pneumovax) [...] and Fami ly Not on file 05/18/2022 Comments Unknown Sex and Gender Information Value Date Recorded Sex Assigned at Not on file Legal Sex Female 8:03 PM CDT Gender Identity Not on file Sexual Orientation Not on file Obstetrics History Last Filed Vital Signs Vital Sign Reading Time Taken Comments Blood Pressure 122/58 05/04/2022 2:08 PM CDT Pulse 122 05/04/2022 2:08 PM CDT Temperature 37.2 C (98.9 F) 03/19/2022 6:00 AM MACHINE FOLDER Respiratory Rate 18 03/19/2022 6:00 AM MACHINE FOLDER Oxygen Saturation 94% 05/04/2022 2:08 PM CDT Inhaled Oxygen Concentration - - Weight 87.8 kg (193 lb 9 oz) 03/16/2022 6:00 AM MACHINE FOLDER Height 172.7 cm (5' 8) 02/26/2022 2:15 PM MACHINE FOLDER Body Mass Index 29.43 02/26/2022 2:15 PM MACHINE FOLDER Plan of Treatment Health Maintenance Due Date Last Done Comments BMI (ht and wt on same day) for age 18+ 1975 Hepatitis C screening for age 18-79 1975 Colonoscopy through age 75 2002 Lipids for age 45-75 2002 Mammogram for age 45-75 2002 Zoster (shingles) series for age 50+ (1 of 2) 2007 RSV vaccine for adults or (1 - Risk 60-74 years 1-dose series) 2017 DEXA/DXA scan for age 65+ 2022 Medicare Wellness for age 65+ 2022 Pneumococcal series for age 50+ (2 of 2 - PCV) 10/21/2022 10/21/2021 Depression screening for age 12+ 05/05/2023 05/04/2022 Influenza Vaccine (#1) 2024 COVID-19 vaccine series ( season) 2024 05/03/2024, 08/01/2023, 11/30/2022, Additional history exists Tetanus booster 10/22/2031 10/21/2021, 10/25/2011 Hepatitis B series for 19+ Aged Out N o longer eligible based on patient's age to complete this topic Insurance MEDICARE PART A HB ONLY MEDICARE PART B HB ONLY [employer] BL[employer] HB ONLY [employer] MR PB ONLY Advance Directives * Full Code (Latest Code Status on File) Date Activated Date Inactivated Comments 02/26/2022 3:09 PM 03/19/2022 1:06 PM Question Answer Comments Code Status Discussion: Reviewed PreferencesQuin mayers Physician reviewed on admission Care Teams Occupational Rehabilitation Aide Relationship Specialty Start Date End Date Pcp, No . PCP - General 02/26/22
[2024-10-17 12:30] VITALS: BP 148/82; PULSE 120; RESP 20; TEMP 36.8; O2SAT 96; BMI 30.4
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
== END 2024-10-17 13:26 | disposition home or self-care (01) ==
LOC: ED 13:25
PROVIDERS: Emergency Provider Student in an Organized Health Care Education/Training Program; PCP Family Medicine
DX: T22.152A Burn of first degree of left shoulder, initial encounter (principal); T21.11XA Burn of first degree of chest wall, initial encounter; X19.XXXA Contact with other heat and hot substances, initial encounter
CPT/HCPCS: 99282; 99283

== ENCOUNTER 2024-10-20 21:35 | Emergency (ER) | payer MEDICARE, BC, SELFPAY ==
--- OUTSIDE RECORDS SUMMARY | 2024-10-20 21:37 | XMS_ITS | Clinical Summary ---
Author Organization [facility] Address [address] [place] [id number] Care Team Providers Care Continuous Improvement Intern Name Role Phone Pcp, No Primary Care [...] times daily. 60 Capsule 3 5:43 PM BACTERIOLOGY TEACHER 03/18/19 23 Active melatonin 3 mg tabletIndications:G [...] at bedtime. 15 Tablet 3 5:43 PM BACTERIOLOGY TEACHER 03/18/19 23 Active pregabalin (LYRICA) 100 mg capsuleIndications: Tetraparesis (HC),Guillain Juarez syndrome (HC) Take 1 Capsule (100 mg) by mouth three times daily. 90 Capsule 3 9:43 AM BACTERIOLOGY TEACHER 03/18/19 23 Active apixaban (Eliquis) 5 mg tabletIndications:p ulmonary thromboembolism Take 1 Tablet (5 mg) by mouth two times daily. 60 Tablet 3 5:43 PM BACTERIOLOGY TEACHER 03/19/19 23 Active levothyroxine (SYNTHROID) 150 mcg [...] 37.2 C (98.9 F) 03/19/2022 6:00 AM BACTERIOLOGY TEACHER Respiratory Rate 18 03/19/2022 6:00 AM BACTERIOLOGY TEACHER Oxygen Saturation 94% 05/04/2022 2:08 PM CDT Inhaled Oxygen Concentration - - Weight 87.8 kg (193 lb 9 oz) 03/16/2022 6:00 AM BACTERIOLOGY TEACHER Height 172.7 cm (5' 8) 02/26/2022 2:15 PM BACTERIOLOGY TEACHER Body Mass Index 29.43 02/26/2022 2:15 PM BACTERIOLOGY TEACHER Plan of Treatment Health Maintenance Due Date [...] MEDICARE PART B HB ONLY [employer] [place] HB ONLY [employer] [place] [employer] MR PB ONLY Advance Directives * Full Code (Latest Code Status on File) Date Activated Date Inactivated Comments 02/26/2022 3:09 PM 03/19/2022 1:06 PM Question Answer Comments Code Status Discussion: Reviewed PreferencesQuin mayers Physician reviewed on admission Care Teams Continuous Improvement Intern Relationship Specialty Start Date End Date Pcp, No . PCP - General 02/26/22
[2024-10-20 21:45] VITALS: BP 155/78; PULSE 117; RESP 18; TEMP 36.7; O2SAT 97; BMI 30.4
--- NOTE | 2024-10-20 22:00 | ED.SKABFB ---
HPI - Skin/Abscess/Foreign Bdy General Date Seen: 10/20/24 Chief complaint: Skin/Abscess/Foreign Body Stated complaint: burn on chest Time Seen by Provider: 10/20/24 21:54 Source: patient Mode of arrival: ambulatory Limitations: no limitations History of Present Illness HPI narrative: Patient is a 69-year-old female presenting to the emergency department for concerns of an infection for her collins she had a couple days ago. She states it occurred when she accidentally got some hot water on her. I did see the patient at that time and discharged her home. She states since then pain has been minimal but she notes today the skin is peeling off more and there is yellowing of the returned to her left breast. Denies fevers, chills, weakness, numbness. She feels otherwise well. She is just making sure it is not getting infected Related Data Home Medications ?Medication ?Instructions ?Recorded ?Confirmed multivitamin 1 tab PO QAM 04/29/22 09/12/24 Calcium PO 06/16/22 09/12/24 Vitamin d3 PO 06/16/22 09/12/24 acetaminophen 650 mg 650 mg PO Q12H PRN 06/22/22 10/17/24 tablet,extended release (Tylenol 8 Hour) ascorbate calcium (vitamin C) 500 1 g PO QDAY 05/03/23 10/17/24 mg tablet melatonin 3 mg tablet 3 mg PO ONCE PRN 05/03/23 09/12/24 vitamin B complex 1 tab PO QDAY 05/03/23 09/12/24 magnesium 200 mg tablet 200 mg PO QDAY 08/04/23 09/12/24 Previous Rx's ?Medication ?Instructions ?Recorded cetirizine 10 mg tablet 10 mg PO .Daily as needed PRN 08/16/23 allergy symptoms #90 tabs albuterol sulfate 90 mcg/actuation 2 inh inhalation Q6H PRN shortness 12/29/23 breath activated powder inhaler of breath or wheezing #1 ea duloxetine 30 mg capsule,delayed 30 mg PO BID #180 caps 05/10/24 release levothyroxine 150 mcg tablet 150 mcg PO QDAY #90 tabs 05/10/24 pregabalin 100 mg capsule 100 mg PO TID #270 caps 05/10/24 simvastatin 20 mg tablet 20 mg PO .Bedtime #90 tabs 05/10/24 sumatriptan succinate 50 mg tablet 50 mg PO .QD PRN migraine headache 05/10/24 #9 tabs varenicline tartrate 0.5 mg (11)-1 See Rx Instructions PO PER PKG DIR 05/18/24 mg (42) tablets in a dose pack #53 ea Held on 10/17/24. Instructions: Doctor's Order Allergies Allergy/AdvReac Type Severity Reaction Status Date / Time No Known Drug Allergies Allergy Verified 10/17/24 12:26 Review of Systems Narrative: Pertinent systems reviewed and were negative unless stated in HPI [facility] Medical History (Updated 10/20/24 @ 22:05 by Piotr Ventura, DO) Multiple lung nodules on CT ?R91.8 - Other nonspecific abnormal finding of lung field (ICD-10) Collagenous colitis (~06/2022) ?K52.831 - Collagenous colitis (ICD-10) Chronic diarrhea ?K52.9 - Noninfective gastroenteritis and colitis, unspecified (ICD-10) Multiple nevi ?D22.9 - Melanocytic nevi, unspecified (ICD-10) Solid nodule of lung 6 mm to 8 mm in diameter (05/2022) ?R91.1 - Solitary pulmonary nodule (ICD-10) History of bone density study ?Z92.89 - Personal history of other medical treatment (ICD-10) History of adenomatous polyp of colon ?Z86.010 - Personal history of colonic polyps (ICD-10) Pulmonary embolism (03/02/22) ?I26.99 - Other pulmonary embolism without acute cor pulmonale (ICD-10) 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) ?G61.0 - Guillain-[place] syndrome (ICD-10) Tobacco abuse disorder ?Z72.0 - Tobacco use (ICD-10) Neuropathy ?G62.9 - Polyneuropathy, unspecified (ICD-10) Migraine headache ?G43.909 - Migraine, unspecified, not intractable, without status migrainosus (ICD-10) Left shoulder pain ?M25.512 - Pain in left shoulder (ICD-10) Insomnia ?G47.00 - Insomnia, unspecified (ICD-10) Hypothyroidism ?E03.9 - Hypothyroidism, unspecified (ICD-10) History of Guillain-[place] syndrome (2012) ?Z86.69 - Personal history of other diseases of the nervous system and sense organs (ICD-10) Dyslipidemia ?E78.5 - Hyperlipidemia, unspecified (ICD-10) Chronic pain of both knees ?M25.561 - Pain in right knee (ICD-10) ?M25.562 - Pain in left knee (ICD-10) ?G89.29 - Other chronic pain (ICD-10) Carpal tunnel syndrome ?G56.00 - Carpal tunnel syndrome, unspecified upper limb (ICD-10) Allergic conjunctivitis and rhinitis ?H10.10 - Acute atopic conjunctivitis, unspecified eye (ICD-10) ?J30.9 - Allergic rhinitis, unspecified (ICD-10) Surgical History Hx of excision of dermoid cyst (08/03/23) ?Z98.890 - Other specified postprocedural states (ICD-10) ?Z86.018 - Personal history of other benign neoplasm (ICD-10) History of hernia repair (2012) ?Z98.890 - Other specified postprocedural states (ICD-10) ?Z87.19 - Personal history of other diseases of the digestive system (ICD-10) History of section (1991) ?Z98.891 - History of uterine scar from previous surgery (ICD-10) History of breast surgery (1988) ?Z98.890 - Other specified postprocedural states (ICD-10) Family History Colon cancer Father, Onset Age: 50 Prostate cancer Maternal Grandfather Diabetes Brother Father Breast cancer Aunt, Onset Age: 55 Celiac disease Mother Brother Family/Other Social History (Updated 09/12/24 @ 14:59 by Babita Chang MD) Narrative: , retired teacher, 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, 3 adult kids, lives with son and his family Exercises 4 days a week aqua fit and yoga Current every day smoker 5/day , smokes daily, 50 pack years Social drinker- 1-2/week What is your current living situation?: I presently have a place to live Problems where you live: no known problems In the past 12 months, utilities in danger of being shut off: no In past 12 months, lack of transportation kept you from medical appts, meetings, work, or getting things needed for daily living: no In the past 12 mos, have been you worried that your food would run out before you had money to buy more?: never true In the past 12 mos, the food you bought just didn't last and you didn't have money to buy more?: never true Smoking Status: Current every day smoker Do you use any of these nicotine containing products: None Second hand tobacco smoke exposure: No How often do you have a drink containing alcohol: monthly or less Alcohol type: hard liquor How many standard drinks containing alcohol do you have on a typical day: 1 or 2 How often do you have six or more drinks on one occasion: Never AUDIT-C Alcohol total score: 1 Non-prescribed substance use: marijuana (any form) Caffeine: Yes How often does anyone, including family, friends and others, physically hurt you: never How often does anyone, including family, friends and others, insult or talk down to you: never How often does anyone, including family, friends and others, threaten you with harm: never How often does anyone, including family, friends and others, scream or curse at you: never Are you using contraception or practicing any form of control: No Exam Narrative: Exam Narrative: Const: Well-nourished, Well-developed, in no distress Eyes: PERRL, no conjunctival injection, and symmetrical lids HENT: Atraumatic external nose and ears. Moist mucous membranes. Neck: Symmetric, trachea midline, No thyromegaly. MSK:Extremities w/o deformity, Normal Active ROM Skin: Warm, Dry. Previous blisters have now resolved. Multiple collins noted on her left chest. The burn to her left breast that was previously fully intact now is missing the epidermal layer. There is some granulation tissue developing. Neuro: Normal Muscle tone, No focal neurological deficits. Psych: Awake, Alert, & Oriented x3. Appropriate mood and affect. Const: Vital Signs, click to edit/add: Vital Signs - 24 hr 10/20/24 21:45 Temperature 98.1 F Pulse Rate [Pulse Oximeter] 117 H Respiratory Rate 18 Blood Pressure [Ri ght Upper Arm] 155/78 H Pulse Oximetry 97 Oxygen Delivery Me thod Room Air Course Vital Signs Vital signs: Initial Vital Signs Temperature 98.1 F 10/20/24 21:45 Temperature Source Temporal Artery Scan 10/20/24 21:45 Pulse Rate 117 H 10/20/24 21:45 Respiratory Rate 18 10/20/24 21:45 Blood Pressure 155/78 H 10/20/24 21:45 Blood Pressure Mean 103 10/20/24 21:45 Blood Pressure Position Sitting 10/20/24 21:45 Pulse Oximetry 97 10/20/24 21:45 Oxygen Delivery Method Room Air 10/20/24 21:45 Vital Signs Temperature 98.1 F 10/20/24 21:45 Pulse Rate 117 H 10/20/24 21:45 Respiratory Rate 18 10/20/24 21:45 Blood Pressure 155/78 H 10/20/24 21:45 Pulse Oximetry 97 10/20/24 21:45 Oxygen Delivery Method Room Air 10/20/24 21:45 Temperature 98.1 F 10/20/24 21:45 Pulse Rate 117 H 10/20/24 21:45 Respiratory Rate 18 10/20/24 21:45 Blood Pressure 155/78 H 10/20/24 21:45 Pulse Oximetry 97 10/20/24 21:45 Oxygen Delivery Method Room Air 10/20/24 21:45 MDM - Skin/Abscess/Foreign Bdy MDM Narrative Medical decision making narrative: Patient is a 69-year-old female presenting for a burn. I do not see any obvious signs of infection. She has multiple collins on her chest each about 3 x 8 cm to 3 x 5 cm in size. One is to her left collarbone, 1 on her left breast and 1 to her left shoulder. The skin on her face is peeling consistent with the first-degree burn. She does have some granulation tissue developing on her left breast burn. I do not see any surrounding erythema she showing no signs of local or systemic infection. I will though start her on some prophylactic antibiotics to make sure she is not developing infection. Keflex prescribed be instymeds. She is agreeable to this plan. Discharge Plan Discharge Clinical Impression: Burn Patient Disposition: Home, Self-Care Condition: Stable Additional Instructions: Take the antibiotics as directed. Try to keep the area covered when moving around to help prevent your clothing from rubbing against it. Have close follow-up with your primary care provider. Prescriptions: No Action Vitamin d3 PO Calcium PO vitamin B complex Tablet 1 tab PO QDAY ascorbate calcium (vitamin C) 500 mg tablet 1 g PO QDAY magnesium 200 mg tablet 200 mg PO QDAY acetaminophen [Tylenol 8 Hour] 650 mg tablet extended release 650 mg PO Q12H PRN melatonin 3 mg tablet 3 mg PO ONCE PRN multivitamin Tablet 1 tab PO QAM simvastatin 20 mg tablet 20 mg PO .Bedtime Qty: 90 3RF pregabalin 100 mg capsule 100 mg PO TID Qty: 270 3RF duloxetine 30 mg capsule,delayed release(DR/EC) 30 mg PO BID Qty: 180 3RF levothyroxine 150 mcg tablet 150 mcg PO QDAY Qty: 90 3RF sumatriptan succinate 50 mg tablet 50 mg PO .QD PRN (Reason: migraine headache) Qty: 9 1RF cetirizine 10 mg tablet 10 mg PO .Daily as needed PRN (Reason: allergy symptoms) Qty: 90 3RF albuterol sulfate 90 mcg/actuation aerosol powdr breath activated 2 inh inhalation Q6H PRN (Reason: shortness of breath or wheezing) Qty: 1 0RF varenicline tartrate 0.5 mg (11)- 1 mg (42) tablets,dose pack See Rx Instructions PO PER PKG DIR Qty: 53 0RF Rx Instructions: PO PER PKG DIR Follow Up/Referrals: Babita Chang MD [Primary Care Provider, Family Practice] Stand Alone Forms: [facility] Info Instructions
== END 2024-10-20 22:19 | disposition home or self-care (01) ==
PROVIDERS: Emergency Provider Student in an Organized Health Care Education/Training Program; PCP Family Medicine
DX: T21.11XA Burn of first degree of chest wall, initial encounter (principal); X12.XXXA Contact with other hot fluids, initial encounter
CPT/HCPCS: 99282